=== PATIENT | male | born 1950 | race Caucasian/White ===

== ENCOUNTER 2020-09-15 11:56 | Day surgery (SDC) | payer MEDICARE, SELFPAY ==
[2020-09-11 12:58] VITALS: BMI 24.9
--- NOTE | 2020-09-14 11:31 | P.CONAN_ITS ---
HPI - Anesthesia Eval Consult details Narrative: 70yo M for Cloneal Nerve Cooled RFA [facility] Past Medical History Medical History Arthritis Back pain COPD (chronic obstructive pulmonary disease) Elevated cholesterol Hx of degenerative disc disease Surgical History Surgical History History of total hip replacement Hx of appendectomy Hx of decompressive lumbar laminectomy Social History Social History Smoking Status: Current every day smoker Meds Allergies Allergy/AdvReac Type Severity Reaction Status Date / Time No Known Allergies Allergy Verified 09/11/20 13:03 Home Medications Medication Instructions Recorded Confirmed Type acetaminophen [Tylenol Extra 1,000 mg PO QID PRN 09/11/20 09/11/20 History Strength] docusate sodium [Colace] 100 mg PO DAILY 09/11/20 09/11/20 History oxycodone 09/11/20 History Exam Exam Date and Time: September 14, 2020 1131 Height,Weight and Vital Signs: Height 6 ft Weight 83.461 kg Assessment and Plan Assessment Anesthesia Assessment: Chart Reviewed
--- NOTE | 2020-09-15 07:53 | MHC.SHP ---
Pre-Procedural Eval Section B Chief Complaint: Cluneal Neuropathy Details of Present Illness: low back pain Relevant Family History (Specify if Yes): No Relevant Social History: None Present Medications: see Short Stay Collaborative assessment Medical History: No relevant PMH History of Previous Operations: Relevant previous surgery/procedure and date(s) Allergies: Allergies Allergy/AdvReac Type Severity Reaction Status Date / Time No Known Allergies Allergy Verified 09/11/20 13:03 Review of Systems Sugical H&P ROS: Negative: Constitution, Cardiovascular, Respiratory, Neurological, Psychiatric, Hem-Onc, Allergic/Immunologic, Gastrointestinal, Genitourinary, Musculoskeletal, Integumentary, Endocrine and Eyes/Ears/Nose/Throat Exam Surgical H&P Exam: Not Evaluated: HEENT, Not Evaluated: Heart, Not Evaluated: Lungs, Not Evaluated: Extremities, Not Evaluated: Abdomen, Not Evaluated: Skin and Not Evaluated: Neurological Plan Diagnosis/Plan: Unchanged Patient has been examined and remains a candidate for the planned procedure
[2020-09-15 12:14] VITALS: BP 124/67; PULSE 74; RESP 18; TEMP 36.6; O2SAT 98
[2020-09-15] MEDS: Lactated Ringers 1,000 ML 100 ML IVCONT (12:30)
--- NOTE | 2020-09-15 13:40 | HO.ANESPROP2 ---
[facility] Past Medical History Medical History Arthritis Back pain Elevated cholesterol Hx of degenerative disc disease Surgical History Surgical History History of total hip replacement Hx of appendectomy Hx of decompressive lumbar laminectomy Social History Social History Smoking Status: Current every day smoker Advance Directives Information Provided: No Meds Allergies Allergy/AdvReac Type Severity Reaction Status Date / Time No Known Allergies Allergy Verified 09/11/20 13:03 Home Medications Medication Instructions Recorded Confirmed Type acetaminophen [Tylenol Extra 1,000 mg PO QID PRN 09/11/20 09/11/20 History Strength] docusate sodium [Colace] 100 mg PO DAILY 09/11/20 09/11/20 History oxycodone 09/11/20 History Exam Exam Date and Time: September 15, 2020 1340 Height,Weight and Vital Signs: Height 6 ft Weight 83.461 kg Last Vital Signs Temp 98 F 09/15/20 12:14 Pulse 74 09/15/20 12:14 Resp 18 09/15/20 12:14 BP 124/67 09/15/20 12:14 Pulse Ox 98 09/15/20 12:14 Airway Mallampati Class: II TM Dist: >3cm Neck ROM: Full Heart: RRR Lungs: CTA
--- NOTE | 2020-09-15 13:41 | HO.ANESPROP2 ---
[facility] Past Medical History Medical History Arthritis Back pain Elevated cholesterol Hx of degenerative disc disease Surgical History Surgical History History of total hip replacement Hx of appendectomy Hx of decompressive lumbar laminectomy Social History Social History Smoking Status: Current every day smoker Advance Directives Information Provided: No Meds Allergies Allergy/AdvReac Type Severity Reaction Status Date / Time No Known Allergies Allergy Verified 09/11/20 13:03 Home Medications Medication Instructions Recorded Confirmed Type acetaminophen [Tylenol Extra 1,000 mg PO QID PRN 09/11/20 09/11/20 History Strength] docusate sodium [Colace] 100 mg PO DAILY 09/11/20 09/11/20 History oxycodone 09/11/20 History Exam Exam Date and Time: September 15, 2020 1341 Height,Weight and Vital Signs: Height 6 ft Weight 83.461 kg Last Vital Signs Temp 98 F 09/15/20 12:14 Pulse 74 09/15/20 12:14 Resp 18 09/15/20 12:14 BP 124/67 09/15/20 12:14 Pulse Ox 98 09/15/20 12:14 Assessment and Plan Assessment Anesthesia Assessment: Anesthesia Plan Discussed, Smoking Cess. Discussed and Chart Reviewed Final Anesthetic Review NPO: No ASA Class: II Final Preanesthetic Review: No Changes in Pt Med Stat, Meds/Allgs Chart Reviewed, Consent Obtained/Reviewed and Anes Risks/Benef Reviewed Patient Risk: Low Procedure Risk: Low Anesthetic Plan Anesthetic Plan: MAC: Disposition: Standard PACU
--- NOTE | 2020-09-15 13:43 | FL_ITS ---
EXAMINATION: XR FLUOROSCOPY WITH IMAGES CLINICAL INFORMATION: Cluneal nerve RFA right COMPARISON: Fluoroscopic spot images 07/04/2020, outside lumbar MR 05/30/2016 ([facility]). TECHNIQUE: Fluoroscopy performed by Dr. Rebel Aguirre. Fluoroscopy time: 0.7 minutes DAP: 6.11 Gycm2 Images: 4 FINDINGS: There are 4 needle electrodes overlying the superior medial right iliac crest. FL/FL guidance in OR IMPRESSION: Fluoroscopy performed pain management procedure.
--- NOTE | 2020-09-15 15:07 | PM.OP ---
Brief Operative Note Date of procedure: 09/15/20 Pre-op diagnosis: cluneal mono neuropathy Post-op diagnosis: same Procedure: RFA of Cluneal nerves on the right. Implants: none Surgeon: Rebel Aguirre MD Anesthesia: MAC Estimated blood loss (mL): 0 IV fluids (mL): 500 Pathology: none sent Condition: stable Disposition: PACU
[2020-09-15 15:10] VITALS: BP 124/72; PULSE 64; RESP 16; TEMP 36.1; O2SAT 98
[2020-09-15 15:20] VITALS: BP 122/70; PULSE 62; RESP 16; O2SAT 96
--- NOTE | 2020-09-15 16:18 | P.OP_ITS ---
Operative Note Operative Note Narrative: Gwenis very pleasant 70 years old gentleman who came today into the operating room. After obtaining informed consent patient was brought to the operating room, she was positioned prone on operating table, [place] [employer] monitors were applied and patient was deeply sedated. Time-out was performed delineating correct site, side, the nature of the procedure, patient's allergy, preoperative antibiotic. All operating room staff was participating in OR time-out procedure. Patient's entire back was prepped with Chloraa prep and drape with utility drapes. Sterilely draped C-arm was brought over the operating field and sq picture of the right iliac crest was demonstrated on the screen. The patient's midline spinous process of L4-5 and S1 vertebra is was noted on the screen. Scoliosis of this area was noted on the screen. 8 cm away from the interspinous line another vertical line was drawn in vertical fashion until it crossed over the projection of the iliac crest. That was the 1st point of the injection. The lowest point of iliac crest was considered to be the last point of the injection. 18 gauge radiofrequency cannulas numerum 4 were sequentially driven to the projection of the iliac crest on the right in [place] fashion. Four treatment applications Each with four radiofrequency cannulas were required to cover entire length of the iliac crest. each time when needle was inserted through the skin and advanced to the patient's iliac crest bone the motor testing was performed and motor response was not observed. After that each needle was injected with mixture of lidocaine 1% and bupivacaine 0.5% 1-1 mixed with trace amount of Kenalog. Temperature application was 89?. The time of the application was 90 seconds. Upon completion of the each application the needles were rotated 180? and the same energy with the same time was applied to each needle position. Upon completion of all needle treatments the array of the RFA machine and needles were removed and sterile dressing was applied. Patient chapincito rated procedures well, he was transferred to PACU for the recovery in stable condition. He went home without immediate complications.
== END 2020-09-15 15:45 | disposition home or self-care (01) ==
PROVIDERS: PCP Internal Medicine; Visit Provider Anesthesiology
PROC: 3E0T3BZ Introduction of Anesthetic Agent into Peripheral Nerves and Plexi, Percutaneous Approach (ICD-10-PCS; CPT 64454; principal; 2020-09-15 14:30)
DX: G58.8 Other specified mononeuropathies (principal); M96.1 Postlaminectomy syndrome, not elsewhere classified; G89.4 Chronic pain syndrome; M54.5 Low back pain; M51.36 Other intervertebral disc degeneration, lumbar region; M17.0 Bilateral primary osteoarthritis of knee; F17.200 Nicotine dependence, unspecified, uncomplicated; Z79.899 Other long term (current) drug therapy; Z96.649 Presence of unspecified artificial hip joint
CPT/HCPCS: 64450 ×2; J2250; J3010; J3300

== ENCOUNTER → 2020-10-05 08:03 | Outpatient (BNVA) | payer MEDICARE, SELFPAY | PROVIDERS: PCP Internal Medicine; Visit Provider Anesthesiology | DX: M96.1 Postlaminectomy syndrome, not elsewhere classified (principal); M46.1 Sacroiliitis, not elsewhere classified; G58.8 Other specified mononeuropathies | CPT/HCPCS: 99212 ==

== ENCOUNTER 2020-10-17 06:14 | Outpatient (REF) | payer MEDICARE, SELFPAY ==
--- NOTE | 2020-10-17 08:21 | FL_ITS ---
EXAMINATION: XR FLUOROSCOPY WITH IMAGES CLINICAL INFORMATION: M46.1 - Sacroiliitis, not elsewhere classified COMPARISON: None. TECHNIQUE: Fluoroscopy performed by Blanca Betancourt NP. Fluoroscopy time: 0.1 minutes DAP: 1.41 Gycm2 Images: 1 FINDINGS: There is spinal needle overlying lower aspect right sacroiliac joint. There is contrast in the surrounding soft tissues and likely intra-articular. FL/FL guidance in treatment room IMPRESSION: Fluoroscopy for pain management procedure.
== END 2020-10-17 06:15 | disposition home or self-care (01) ==
LOC: HO.RADIR 06:14
PROVIDERS: Visit Provider Anesthesiology
DX: M46.1 Sacroiliitis, not elsewhere classified (principal)
CPT/HCPCS: 27096; J3300; Q9967

== ENCOUNTER → 2020-10-26 13:28 | Outpatient (BNVA) | payer MEDICARE, SELFPAY | PROVIDERS: PCP Internal Medicine; Referring Provider Internal Medicine; Visit Provider Anesthesiology | DX: M46.1 Sacroiliitis, not elsewhere classified (principal); M96.1 Postlaminectomy syndrome, not elsewhere classified; G58.8 Other specified mononeuropathies | CPT/HCPCS: 99212 ==

== ENCOUNTER 2020-11-21 05:23 | Outpatient (REF) | payer MEDICARE, SELFPAY ==
--- NOTE | 2020-11-21 07:30 | FL_ITS ---
EXAMINATION: XR FLUOROSCOPY WITH IMAGES CLINICAL INFORMATION: Postlaminectomy syndrome. COMPARISON: None. TECHNIQUE: Fluoroscopy performed by lBanca Betancourt NP. Fluoroscopy time: 0.9 minutes DAP: 6.32 Gycm2 Images: 1 FINDINGS: There is a single image of lateral sacral spine reveals contrast in the post sacral soft tissues and the linear contrast opacifying a extension through the sacrum into the presacral space. I'm not sure if there is a needle within extending to the presacral space with contrast FL/FL guidance in treatment room IMPRESSION: Fluoroscopy is provided to the referring physician for sacral injection.
== END 2020-11-21 05:24 | disposition home or self-care (01) ==
LOC: HO.RADIR 05:23
PROVIDERS: Visit Provider Anesthesiology
DX: G89.4 Chronic pain syndrome (principal); M96.1 Postlaminectomy syndrome, not elsewhere classified; G58.8 Other specified mononeuropathies; M46.1 Sacroiliitis, not elsewhere classified
CPT/HCPCS: 62323; J3300; Q9967

== ENCOUNTER → 2020-11-22 11:11 | Outpatient (BNVA) | payer MEDICARE, SELFPAY | PROVIDERS: PCP Internal Medicine; Visit Provider Anesthesiology | DX: G58.8 Other specified mononeuropathies (principal); M46.1 Sacroiliitis, not elsewhere classified; M96.1 Postlaminectomy syndrome, not elsewhere classified | CPT/HCPCS: Q3014 ==

== ENCOUNTER → 2021-01-03 08:07 | Outpatient (BNVA) | payer MEDICARE, SELFPAY | PROVIDERS: PCP Internal Medicine; Visit Provider Anesthesiology | DX: G58.8 Other specified mononeuropathies (principal); M46.1 Sacroiliitis, not elsewhere classified; M96.1 Postlaminectomy syndrome, not elsewhere classified | CPT/HCPCS: 99212 ==

== ENCOUNTER 2021-03-23 11:07 | Day surgery (SDC) | payer MEDICARE, SELFPAY ==
[2021-03-19 09:20] VITALS: BMI 25.0
--- NOTE | 2021-03-21 12:56 | P.CONAN_ITS ---
Documented by User: Tamela Meza 03/21/21 12:57 HPI - Anesthesia Eval Consult details Narrative: 70yo M for Lumbar Spinal Cord Simulation Trial [facility] Active Problems Active Problems: All Active Problems (Updated 11/22/20 @ 11:25 by Rebel Aguirre MD) Postlaminectomy syndrome (Acute) Sacroiliitis, not elsewhere classified (Acute) Other specified mononeuropathies (Acute) Past Medical History Medical History (Updated 11/22/20 @ 11:25 by Rebel Aguirre MD) Arthritis Back pain Elevated cholesterol Hx of degenerative disc disease Other specified mononeuropathies Postlaminectomy syndrome Sacroiliitis, not elsewhere classified Surgical History Surgical History (Updated 03/19/21 @ 09:20 by Kiersten Gates) History of total hip replacement Hx of appendectomy Hx of decompressive lumbar laminectomy Hx of prior ablation treatment Social History Social History (Updated 03/19/21 @ 09:21 by Kiersten Gates) Smoking Status: Current every day smoker Tobacco Type: Cigarette Advance Directives: No Advance Directives Information Provided: Yes Meds Allergies Allergy/AdvReac Type Severity Reaction Status Date / Time No Known Allergies Allergy Verified 01/03/21 08:14 Home Medications Medication Instructions Recorded Confirmed Last Taken Type acetaminophen [Tylenol Extra 1,000 mg PO QID PRN 09/11/20 09/11/20 Unknown History Strength] docusate sodium [Colace] 100 mg PO DAILY 09/11/20 09/11/20 Unknown History oxycodone 09/11/20 Unknown History Exam Exam Date and Time: March 21, 2021 1256 Height,Weight and Vital Signs: Height 6 ft Weight 83.688 kg Assessment and Plan Assessment Anesthesia Assessment: Chart Reviewed Documented by User: Mirlande Javier 03/23/21 11:32 [facility] Past Medical History Medical History (Updated 11/22/20 @ 11:25 by Rebel Aguirre MD) Arthritis Back pain Elevated cholesterol Hx of degenerative disc disease Other specified mononeuropathies Postlaminectomy syndrome Sacroiliitis, not elsewhere classified Surgical History Surgical History (Updated 03/19/21 @ 09:20 by Kiersten Gates) History of total hip replacement Hx of appendectomy Hx of decompressive lumbar laminectomy Hx of prior ablation treatment Social History Social History (Updated 03/19/21 @ 09:21 by Kiersten Gates) Smoking Status: Current every day smoker Tobacco Type: Cigarette Advance Directives: No Advance Directives Information Provided: Yes Meds Allergies Allergy/AdvReac Type Severity Reaction Status Date / Time No Known Allergies Allergy Verified 01/03/21 08:14 Home Medications Medication Instructions Recorded Confirmed Last Taken Type acetaminophen [Tylenol Extra 1,000 mg PO QID PRN 09/11/20 09/11/20 Unknown History Strength] docusate sodium [Colace] 100 mg PO DAILY 09/11/20 09/11/20 Unknown History oxycodone 09/11/20 Unknown History Exam Airway Mallampati Class: II TM Dist: >3cm Neck ROM: Full Partial: Upper Heart: RRR Lungs: CTA BL Assessment and Plan Assessment Anesthesia Assessment: Anesthesia Plan Discussed and Chart Reviewed Final Anesthetic Review NPO: Yes ASA Class: II Final Preanesthetic Review: No Changes in Pt Med Stat and Consent Obtained/Reviewed Patient Risk: Intermediate Procedure Risk: Intermediate Anesthetic Plan Anesthetic Plan: MAC: Disposition: Standard PACU
--- NOTE | ~2021-03-23 | FL_ITS ---
EXAMINATION: XR FLUOROSCOPY WITH IMAGES CLINICAL INFORMATION: Spinal stimulator trial COMPARISON: None. TECHNIQUE: Fluoroscopy performed by Dr. Blas Betancourt. Fluoroscopy time: 1.9 minutes DAP: 32.5 mGycm2 Images: 5 FINDINGS: There are posterior spinal epidural stimulators positioned posterior to T8 through T10 vertebra. Visualized bones and paravertebral soft tissues are normal. FL/FL guidance in OR IMPRESSION: Fluoroscopy provided to Dr. Rainer Rock for posterior epidural spinal stimulator placement.
[2021-03-23] MEDS: Lactated Ringers 1,000 ML 100 ML IVCONT (11:36)
[2021-03-23 11:37] VITALS: BP 132/66; PULSE 68; RESP 16; TEMP 36.4; O2SAT 94
--- NOTE | 2021-03-23 12:01 | MHC.SHP ---
Pre-Procedural Eval Section A Changes since office visit: Yes Patient answered all questions The History & Physical has been completed within 30 days and I have reviewed it.: No Section B Chief Complaint: postlaminectomy syndrome Details of Present Illness: As above Relevant Family History (Specify if Yes): No Relevant Social History: None Present Medications: see Short Stay Collaborative assessment Medical History: No relevant PMH History of Previous Operations: Relevant previous surgery/procedure and date(s) Allergies: Allergies Allergy/AdvReac Type Severity Reaction Status Date / Time No Known Allergies Allergy Verified 03/23/21 11:41 Review of Systems Sugical H&P ROS: Negative: Constitution, Cardiovascular, Respiratory, Neurological, Psychiatric, Hem-Onc, Allergic/Immunologic, Gastrointestinal, Genitourinary, Musculoskeletal, Integumentary, Endocrine and Eyes/Ears/Nose/Throat Exam Surgical H&P Exam: Normal: HEENT, Normal: Heart, Normal: Lungs, Normal: Extremities, Normal: Abdomen, Normal: Skin and Normal: Neurological Plan Diagnosis/Plan: Unchanged I have reviewed the history and physical and performed a pertinent physical examination on my patient. No changes have occurred unless specified.
[2021-03-23 13:10] VITALS: BP 119/72; PULSE 60; RESP 11; TEMP 36.2; O2SAT 94
--- NOTE | 2021-03-23 13:20 | PM.OP ---
Brief Operative Note Date of Service: 03/23/21 Pre-op diagnosis: Postlaminectomy syndrome Post-op diagnosis: same Procedure: Trial of SCS Implants: Nothing permanent Surgeon: Rebel Aguirre MD Anesthesia: MAC Was an Audio Video Mechanic used for this Procedure?: No Estimated blood loss (mL): 0 Pathology: none sent Condition: stable Disposition: PACU
--- NOTE | 2021-03-23 13:21 | W.PM.OPN ---
Operative Note Operative Note Date of Service: 03/23/21 Narrative: Mr. Natarajan is very pleasant 69 years old gentleman who came today into the operating room for trial of spinal cord stimulator for the treatment of pain related to degenerative disc disease and chronic pain syndrome. Preoperatively patient received 2 g cefazolin _approximately 30 minutes before the procedure. After obtaining informed consent patient was brought to the operating room, he was positioned prone on operating table, [place] [employer] monitors were applied and patient was deeply sedated. Time-out was performed delineating correct site, side, the nature of the procedure, patient's allergy, preoperative antibiotic. All operating room staff was participating in OR time-out procedure. Patient's entire back was prepped with ChloraPrep twice and draped with full body drape. Sterilely draped C-arm was brought over operating field and square picture of T12, L1, L2 vertebrae as were demonstrated on the screen. . Attention FIRST was concentrated on the RIGHT T12-L1 epidural interspace. The location of the projection of the right pedicle center of the L2 vertebra was found on the skin using C-arm. This location was injected with mixture of lidocaine 2% and Marcaine 0.5% 5 cc in approximate direction of needle advancement.. After that 10 cm 14 gauge curved introducer epidural needle was inserted through the fascia and advanced toward T12-L1 epidural interspace. The advancement of the needle was performed on anterior posterior and lateral views. Guitar wire and loss of resistance technique were used to locate epidural space. When guitar wire was spread in the epidural fashion, epidural lead was inserted through the skin and it was advanced in the posterior epidural space to the mid body of T8 vertebra slightly right to midline. After that locationf the projection of the LEFT pedicle center of the L2 vertebra was found -using C-arm. This location was injected with mixture of lidocaine 2% and Marcaine 0.5% 5 cc.. . 10 cm 14 gauge curved introducer epidural needle was inserted through the skin and advanced to T12-L1 epidural interspace. The advancement of the needle was performed on anterior posterior and lateral views. Guitar wire and loss of resistance technique were used to locate epidural space. When guitar wire was spread in the epidural fashion, epidural lead was inserted through the needle and advanced to the top of T8 practically in the center. At this moment patient was awaken.The leads were connected to the testing device and impedance was found appropriate. The stimulation device was used to stimulate spinal cord. Patient reported stimulation corresponding to his pain. After that the epidural needles were removed while care was taken to keep the epidural electrodes in place. Anchoring devices were dislodged on the each of the epidural leads to the level of the skin. The were engaged at the level of the skin. After that the were sutured to the skin using 0 silk sutures 3 sutures per each anchoring device. Bacitracin ointment was applied to the level of the skin. Sterile dressing was applied. At this moment patient was taken to the PACU where he recovered uneventfully.
[2021-03-23 13:25] VITALS: BP 117/64; PULSE 58; RESP 18; O2SAT 96
[2021-03-23 13:40] VITALS: BP 127/72; PULSE 56; RESP 18; O2SAT 97
== END 2021-03-23 14:15 | disposition home or self-care (01) ==
PROVIDERS: PCP Internal Medicine; Visit Provider Anesthesiology
PROC: (CPT 63650; principal; 2021-03-23 12:20)
DX: M96.1 Postlaminectomy syndrome, not elsewhere classified (principal); M46.1 Sacroiliitis, not elsewhere classified; G58.9 Mononeuropathy, unspecified
CPT/HCPCS: 63650 ×2; C1713; C1897; J0690; J3010

== ENCOUNTER → 2021-03-29 12:49 | Outpatient (BNVA) | payer MEDICARE, SELFPAY | PROVIDERS: PCP Internal Medicine; Visit Provider Anesthesiology | DX: M46.1 Sacroiliitis, not elsewhere classified (principal); G58.8 Other specified mononeuropathies; M96.1 Postlaminectomy syndrome, not elsewhere classified | CPT/HCPCS: 99212 ==

== ENCOUNTER → 2021-03-30 16:12 | Outpatient (BNVA) | payer MEDICARE, SELFPAY | PROVIDERS: PCP Internal Medicine; Visit Provider Anesthesiology | DX: G58.8 Other specified mononeuropathies (principal); M46.1 Sacroiliitis, not elsewhere classified; M96.1 Postlaminectomy syndrome, not elsewhere classified ==

== ENCOUNTER 2021-10-23 09:47 | Outpatient (REF) | payer MEDICARE, SELFPAY ==
[2021-10-23 10:58] LABS: MANUAL DIFF FLAG NO
[2021-10-23 11:00] LABS: Basophils Absolute Auto 0.1 X10*3/uL (0.0-0.2); Basophils Percent Auto 0.7 % (0-2); Eosinophils Absolute Auto 0.2 X10*3/uL (0.0-0.4); Eosinophils Percent Auto 2.6 % (0-4); Hematocrit 42.3 % (42.0-52.0); Hemoglobin 14.1 g/dl (14.0-18.0); Imm Gran Abs Auto 0.02 X10*3/uL (0.00-0.03); Imm Gran Pct Auto 0.2 % (0.0-0.4); Lymphocytes Percent Auto 23.1 % (20-40); Mean Corpuscular HGB Conc 33.3 g/dl (31.0-36.0); Mean Corpuscular Volume 95.9 fL (80.0-98.0); Mean Platelet Volume 12.1 fL (9.4-12.4); Monocytes Absolute Auto 0.7 X10*3/uL (0.1-1.2); Monocytes Percent Auto 8.3 % (2-11); Neutrophils Absolute Auto 5.5 x10*3/uL (2.0-8.3); Neutrophils Percent Auto 65.1 % (45-73); Platelet Count 243 X10*3/uL (160-400); Red Blood Count 4.41 X10*6/uL (4.60-5.80); Red Cell Distribution Width 12.7 % (11.0-16.0); White Blood Count 8.5 X10*3/uL (4.8-10.8)
[2021-10-23 11:27] LABS: Alanine Aminotransferase 24 U/L (0-40); Albumin Level 4.2 g/dL (3.5-5.0); Alkaline Phosphatase 38 U/L (39-117); Anion Gap 14 (12-20); Aspartate Amino Transferase 22 U/L (5-37); Bilirubin Total 0.4 mg/dL (0.0-1.0); Blood Urea Nitrogen 17 mg/dL (9-16); Calcium 10.1 mg/dL (8.4-10.2); Carbon Dioxide 21 mmol/L (22-29); Chloride 109 mmol/L (96-108); Cholesterol 223 mg/dL; Estimated Glomerular Filt Rate > 60; Glucose Fasting 98 mg/dL (60-99); HDL Cholesterol 47 mg/dL; LDL Cholesterol Calculated 151 mg/dl; Potassium 4.7 mmol/L (3.3-5.1); Sodium 139 mmol/L (135-145); Total Protein 6.6 g/dL (6.5-8.0); Triglycerides 128 mg/dL
[2021-10-23 11:49] LABS: Vitamin D 25-OH Total 32.4 ng/mL (>30)
[2021-10-23 11:52] LABS: Vitamin B12 541 pg/mL (200-900)
[2021-10-23 12:23] LABS: Prostate Specific Antigen 2.01 ng/mL (<0.05-4.0)
== END 2021-10-23 09:48 | disposition home or self-care (01) ==
LOC: HO.MANLDS 09:47
PROVIDERS: PCP Internal Medicine; Visit Provider Internal Medicine
DX: Z00.00 Encounter for general adult medical examination without abnormal findings (principal); Z12.5 Encounter for screening for malignant neoplasm of prostate
CPT/HCPCS: 36415; 80053; 80061; 82306; 82607; 84153; 85025

== ENCOUNTER 2022-11-13 08:02 | Outpatient (REF) | payer MEDICARE, SELFPAY ==
[2022-11-13 11:09] LABS: MANUAL DIFF FLAG NO
[2022-11-13 11:26] LABS: Basophils Absolute Auto 0.1 X10*3/uL (0.0-0.2); Eosinophils Absolute Auto 0.3 X10*3/uL (0.0-0.4); Eosinophils Percent Auto 3.6 % (0-4); Hematocrit 42.9 % (42.0-52.0); Hemoglobin 14.3 g/dl (14.0-18.0); Imm Gran Abs Auto 0.02 X10*3/uL (0.00-0.03); Imm Gran Pct Auto 0.3 % (0.0-0.4); Lymphocytes Absolute Auto 1.9 X10*3/uL (1.2-4.9); Mean Corpuscular HGB Conc 33.3 g/dl (31.0-36.0); Mean Corpuscular Hemoglobin 31.6 pg (27.0-33.0); Mean Corpuscular Volume 94.9 fL (80.0-98.0); Mean Platelet Volume 12.5 fL (9.4-12.4); Monocytes Absolute Auto 0.6 X10*3/uL (0.1-1.2); Monocytes Percent Auto 7.6 % (2-11); Neutrophils Absolute Auto 4.4 x10*3/uL (2.0-8.3); Neutrophils Percent Auto 61.5 % (45-73); Platelet Count 229 X10*3/uL (160-400); Red Blood Count 4.52 X10*6/uL (4.60-5.80); Red Cell Distribution Width 13.1 % (11.0-16.0); White Blood Count 7.2 X10*3/uL (4.8-10.8)
[2022-11-13 11:39] LABS: Estimated Average Glucose 100 mg/dL; Hemoglobin A1c % 5.1 %
[2022-11-13 12:28] LABS: Vitamin B12 625 pg/mL (200-900)
[2022-11-13 12:33] LABS: Alanine Aminotransferase 17 U/L (0-40); Alkaline Phosphatase 37 U/L (39-117); Anion Gap 14 (12-20); Aspartate Amino Transferase 20 U/L (5-37); Bilirubin Total 0.5 mg/dL (0.0-1.0); Blood Urea Nitrogen 11 mg/dL (9-16); Calcium 9.7 mg/dL (8.4-10.2); Carbon Dioxide 22 mmol/L (22-29); Chloride 107 mmol/L (96-108); Estimated Glomerular Filt Rate > 60; Glucose Random 104 mg/dL (60-115); Prostate Specific Antigen 1.42 ng/mL (<0.05-4.0); Sodium 139 mmol/L (135-145); Total Protein 6.3 g/dL (6.5-8.0); Vitamin D 25-OH Total 28.9 ng/mL (>30)
== END 2022-11-13 08:03 | disposition home or self-care (01) ==
LOC: HO.MANLDS 08:02
PROVIDERS: Visit Provider Internal Medicine
DX: Z00.01 Encounter for general adult medical examination with abnormal findings (principal); Z12.5 Encounter for screening for malignant neoplasm of prostate
CPT/HCPCS: 36415; 80053; 82306; 82607; 83036; 84153; 85025

== ENCOUNTER 2023-04-15 12:55 | Outpatient (REF) | payer MEDICARE, SELFPAY ==
[2023-04-15 14:47] LABS: Hematocrit 42.5 % (42.0-52.0); Mean Corpuscular HGB Conc 32.9 g/dl (31.0-36.0); Mean Corpuscular Hemoglobin 31.9 pg (27.0-33.0); Mean Corpuscular Volume 96.8 fL (80.0-98.0); Mean Platelet Volume 11.7 fL (9.4-12.4); Platelet Count 223 X10*3/uL (160-400); Red Blood Count 4.39 X10*6/uL (4.60-5.80); Red Cell Distribution Width 13.2 % (11.0-16.0); White Blood Count 7.9 X10*3/uL (4.8-10.8)
[2023-04-15 14:55] LABS: Partial Thromboplastin Time 32.5 SEC (26.0-36.4)
== END 2023-04-15 12:56 | disposition home or self-care (01) ==
LOC: HO.LAB 12:55
PROVIDERS: PCP Internal Medicine; Visit Provider Physician Assistant
DX: Z51.81 Encounter for therapeutic drug level monitoring (principal); M46.1 Sacroiliitis, not elsewhere classified; Z98.890 Other specified postprocedural states; Z79.899 Other long term (current) drug therapy
CPT/HCPCS: 36415; 85027; 85730; 99202

== ENCOUNTER → 2023-06-25 12:57 | Outpatient (BNV) | payer MEDICARE, SELFPAY | PROVIDERS: PCP Internal Medicine; Visit Provider Internal Medicine Cardiovascular Disease | DX: I49.3 Ventricular premature depolarization (principal); R94.31 Abnormal electrocardiogram [ECG] [EKG] | CPT/HCPCS: 93010 ==

== ENCOUNTER 2023-07-08 06:03 | Day surgery (SDC) | payer MEDICARE, SELFPAY ==
--- NOTE | 2023-06-25 | ECG_ITS ---
Test Reason : preop Blood Pressure : / mmHG Vent. Rate : 064 BPM Atrial Rate : 064 BPM P-R Int : 130 ms QRS Dur : 086 ms QT Int : 406 ms P-R-T Axes : 070 072 097 degrees QTc Int : 418 ms Sinus rhythm with sinus arrhythmia with Premature ventricular complexes or Fusion complexes Possible Left atrial enlargement Nonspecific ST and T wave abnormality Abnormal ECG No previous ECGs available Referred By: Tamela Meza Electronically Signed By:Andry Simons
[2023-06-25 12:06] VITALS: BP 121/68; PULSE 65; RESP 16; O2SAT 96; BMI 22.6
--- NOTE | 2023-06-25 12:23 | P.CONAN_ITS ---
Documented by User: Tamela Meza NP 06/30/23 10:53 HPI - Anesthesia Eval Consult details Narrative: 73yo M for Right Sacroiliac Joint Fusion Smoker:12 cigs daily x 60 years. Denies SOB, cough, need for inhalers. Stable at last PCP appoint 11/2022 No recent illness No CP/SOB with very minimal activity d/t back pain 06/2023 EKG reviewed by PCP. No change from previous. Ok to proceed with surgery PMFSH Active Problems Active Problems: All Active Problems (Updated 06/25/23 @ 11:58 by Kiersten Gates RN) Postlaminectomy syndrome (Acute) Sacroiliitis, not elsewhere classified (Acute) Other specified mononeuropathies (Acute) Past Medical History Medical History Arthritis Back pain COPD (chronic obstructive pulmonary disease) Elevated cholesterol Hx of degenerative disc disease Other specified mononeuropathies Postlaminectomy syndrome Sacroiliitis, not elsewhere classified Family History Family history of problems with anesthesia: No Surgical History Surgical History (Updated 06/24/23 @ 11:03 by Kiersten Gates RN) History of total hip replacement Hx of appendectomy Hx of decompressive lumbar laminectomy Hx of prior ablation treatment History of Problems with Anesthesia: No Social History Social History Are you a primary respiratory care technician to a significant other at home: No Do you presently have visiting nurse or other home services: No Patient Tobacco Use Status: Current everyday Tobacco user Tobacco use type: Cigarette Cigarette Packs Per Day: 0.5 Cigarettes Per Day: 12 Years Smoked: 60 Meds Allergies Allergy/AdvReac Type Severity Reaction Status Date / Time No Known Allergies Allergy Verified 04/15/23 13:15 Home Medications Medication Instructions Recorded Confirmed Last Taken Type acetaminophen 500 mg tablet 1,000 mg PO QID PRN Pain 09/11/20 06/25/23 Unknown History (Tylenol Extra Strength) docusate sodium 100 mg capsule 100 mg PO QAM 09/11/20 06/25/23 Unknown History (Colace) cholecalciferol (vitamin D3) 25 25 mcg PO DAILY 06/25/23 06/25/23 Unknown History mcg (1,000 unit) capsule (Vitamin D3) multivitamin 1 tab PO DAILY 06/25/23 06/25/23 Unknown History oxycodone 10 mg tablet 10 mg PO BID PRN Pain 06/25/23 06/25/23 Unknown History Exam Exam Date and Time: June 25, 2023 1223 Height,Weight and Vital Signs: Height 6 ft Weight 75.75 kg Last Vital Signs Pulse 65 06/25/23 12:06 Resp 16 06/25/23 12:06 BP 121/68 06/25/23 12:06 Pulse Ox 96 06/25/23 12:06 O2 Del Method Room Air 06/25/23 12:06 Pertinent Lab Results Pertinent Lab Results: Laboratory Tests 04/15/23 14:31 WBC 7.9 Hgb 14.0 Hct 42.5 Plt Count 223 Lab Results 06/25/23 Range/Units 12:53 Sodium 139 (135-145) mmol/L Potassium 4.4 (3.3-5.1) mmol/L Chloride 107 (96-108) mmol/L Carbon Dioxide 22 (22-29) mmol/L Anion Gap 14 (12-20) BUN 12 (9-16) mg/dL Creatinine 0.76 (0.5-1.4) mg/dL Estim Creat Clear Calc 91.3 Estimated GFR > 60 Random Glucose 96 (60-115) mg/dL Calcium 10.5 H D (8.4-10.2) mg/dL Narrative Narrative: EKG 06/2023 Vent. Rate : 064 BPM ? ? Atrial Rate : 064 BPM ?? P-R Int : 130 ms? QRS Dur : 086 ms ? ? QT Int : 406 ms ? ? ? P-R-T Axes : 070 072 097 degrees ?? QTc Int : 418 ms ? Sinus rhythm with sinus arrhythmia with Premature ventricular complexes or Fusion complexes Possible Left atrial enlargement Nonspecific ST and T wave abnormality Abnormal ECG No previous ECGs available Airway Mallampati Class: I TM Dist: >3cm Neck ROM: Full Partial: Upper and Lower Heart: RRR Lungs: CTAB Assessment and Plan Assessment Anesthesia Assessment: Anesthesia Plan Discussed, Smoking Cess. Discussed and PAT Visit Final Anesthetic Review Family History of Problems with Anesthesia: No History of Problems with Anesthesia: No Documented by User: Gregory Wray MD 07/08/23 15:17 REPLACED BY [facility] Past Medical History Medical History Arthritis Back pain COPD (chronic obstructive pulmonary disease) Elevated cholesterol Hx of degenerative disc disease Other specified mononeuropathies Postlaminectomy syndrome Sacroiliitis, not elsewhere classified Surgical History Surgical History (Updated 06/24/23 @ 11:03 by Kiersten Gates RN) History of total hip replacement Hx of appendectomy Hx of decompressive lumbar laminectomy Hx of prior ablation treatment Social History Social History Are you a primary respiratory care technician to a significant other at home: No Do you presently have visiting nurse or other home services: No Patient Tobacco Use Status: Current everyday Tobacco user Tobacco use type: Cigarette Cigarette Packs Per Day: 0.5 Cigarettes Per Day: 12 Years Smoked: 60 Meds Allergies Allergy/AdvReac Type Severity Reaction Status Date / Time No Known Allergies Allergy Verified 04/15/23 13:15 Home Medications Medication Instructions Recorded Confirmed Last Taken Type acetaminophen 500 mg tablet 1,000 mg PO QID PRN Pain 09/11/20 06/25/23 Unknown History (Tylenol Extra Strength) docusate sodium 100 mg capsule 100 mg PO QAM 09/11/20 06/25/23 Unknown History (Colace) cholecalciferol (vitamin D3) 25 25 mcg PO DAILY 06/25/23 06/25/23 Unknown History mcg (1,000 unit) capsule (Vitamin D3) multivitamin 1 tab PO DAILY 06/25/23 06/25/23 Unknown History oxycodone 10 mg tablet 10 mg PO BID PRN Pain 06/25/23 06/25/23 Unknown History Assessment and Plan Final Anesthetic Review NPO: Yes ASA Class: II Final Preanesthetic Review: No Changes in Pt Med Stat, Meds/Allgs Chart Reviewed, Consent Obtained/Reviewed and Anes Risks/Benef Reviewed Patient Risk: Low Procedure Risk: Low Anesthetic Plan Anesthetic Plan: GA Disposition: Standard PACU
[2023-06-25 14:53] LABS: Anion Gap 14 (12-20); Blood Urea Nitrogen 12 mg/dL (9-16); Calcium 10.5 mg/dL (8.4-10.2); Carbon Dioxide 22 mmol/L (22-29); Chloride 107 mmol/L (96-108); Creatinine Clr Calc Pharmacy 91.3; Estimated Glomerular Filt Rate > 60; Glucose Random 96 mg/dL (60-115); Potassium 4.4 mmol/L (3.3-5.1); Sodium 139 mmol/L (135-145)
--- NOTE | ~2023-07-08 | FL_ITS ---
EXAMINATION: XR FLUOROSCOPY WITH IMAGES CLINICAL INFORMATION: Sacroiliac joint fusion, right COMPARISON: None available. TECHNIQUE: Fluoroscopy Supervised By: Dr. Luis Enrique Awan. Fluoroscopy Time: 0.8 minutes. Cumulative Dose: 55.9 mGy. DAP: 14.3 Gycm2. Images: 1. FINDINGS: Single fluoroscopic image of the lower lumbar spine and sacrum. No surgical instruments seen. Atherosclerotic disease. FL/FL guidance in OR IMPRESSION: Single fluoroscopic image of the lower lumbar spine and sacrum.
[2023-07-08 06:28] VITALS: BP 118/71; PULSE 67; RESP 16; TEMP 36.2; O2SAT 95
[2023-07-08] MEDS: Lactated Ringers 1,000 ML 100 ML IVCONT (06:35)
[2023-07-08] MEDS: Gabapentin 300 MG CAPSULE PO (06:37)
[2023-07-08] MEDS: methocarbamoL 750 MG TABLET PO (06:37)
--- NOTE | 2023-07-08 07:09 | MHC.SHP ---
Pre-Procedural Eval Section A Date of Service: 07/08/23 Section B Chief Complaint: Sacroiliitis,Sacrococcygeal disorders, Allergies: Allergies Allergy/AdvReac Type Severity Reaction Status Date / Time No Known Allergies Allergy Verified 04/15/23 13:15 Review of Systems Sugical H&P ROS: Negative: Constitution, Cardiovascular, Respiratory, Neurological, Psychiatric, Hem-Onc, Allergic/Immunologic, Gastrointestinal, Genitourinary, Musculoskeletal, Integumentary, Endocrine and Eyes/Ears/Nose/Throat Exam Surgical H&P Exam: Not Evaluated: HEENT, Not Evaluated: Heart, Not Evaluated: Lungs, Not Evaluated: Extremities, Not Evaluated: Abdomen, Not Evaluated: Skin and Not Evaluated: Neurological Plan I have reviewed the history and physical and performed a pertinent physical examination on my patient. No changes have occurred unless specified. Procedures not changed will be doing a R sided SI joint fusion. Time Spent With Patient Time: Total time managing care of this patient today __10__ minutes.
[2023-07-08 08:55] VITALS: BP 121/73; PULSE 74; RESP 16; TEMP 35.8; O2SAT 96
[2023-07-08 09:00] VITALS: BP 125/69; PULSE 70; RESP 18; TEMP 36.2; O2SAT 98
[2023-07-08 09:05] VITALS: BP 123/68; PULSE 67; RESP 14; O2SAT 98
[2023-07-08 09:10] VITALS: BP 112/64; PULSE 67; RESP 16; O2SAT 97
[2023-07-08 09:25] VITALS: BP 121/67; PULSE 66; RESP 16; TEMP 36.1; O2SAT 95
--- NOTE | 2023-07-08 09:30 | PM.DS ---
DS: Providers Provider Date of Service: 07/08/23 Date of discharge: 07/08/23 Primary care physician: Rodrigo Rodriguez MD Admitting clinician: Luis Enrique Awan DS: Diagnosis Discharge Diagnosis (1) Sacroiliitis, not elsewhere classified: Status: Acute DS: Summary Time Spent with Patient Time attestation: Total time managing care of this patient today ____ minutes. Discharge coordination time: Less than 30 minutes Quality: Safe Use of Opioids Does Pt have an Active Cancer Diagnosis on the Problem List?: No Quality: Stroke Does the patient have a stroke diagnosis?: No Physical Exam Vital Signs: Vital Signs: Last Vital Signs Temp 97.2 F 07/08/23 09:00 Pulse 67 07/08/23 09:10 Resp 16 07/08/23 09:10 BP 112/64 07/08/23 09:10 Pulse Ox 97 07/08/23 09:10 O2 Del Method Room Air 07/08/23 09:10 O2 Flow Rate 2 07/08/23 09:05 BMI result Body Mass Index 22.6 Discharge Plan Discharge Patient Disposition: Home, Self-Care Referrals: Rodrigo Rodriguez MD [Primary Care Provider] - 1 Week Discharge Medications: Continued acetaminophen [Tylenol Extra Strength] 500 mg Tablet 1,000 mg PO QID PRN (Reason: Pain) docusate sodium [Colace] 100 mg Capsule 100 mg PO QAM oxycodone 10 mg tablet 10 mg PO BID PRN (Reason: Pain) multivitamin Tablet 1 tab PO DAILY cholecalciferol (vitamin D3) [Vitamin D3] 25 mcg (1,000 unit) Capsule 25 mcg PO DAILY Discharge Orders: Discharge Order (Routine); Ordered 07/08/23 Ordered By: Topher Lange Diet: Advance to usual diet Activity on Discharge: As tolerated
--- NOTE | 2023-07-08 12:58 | W.PM.OPN ---
Operative Note Operative Note Date of Service: 07/08/23 Narrative: Preop diagnosis: SI joint dysfunction, right-sided Postop diagnosis: Same Procedure: Attempt right as I joint fusion Surgeon: Luis Enrique Awan MD Assist: Anesthesia: General Estimated blood loss: 0 Intraoperative findings: The patient was put in a prone position on a Omid spine table. Two C arms or installed for fluoroscopy. Unfortunately, I was unable to visualize the anatomy required to safely perform the SI joint fusion. Therefore I decided to abort the procedure.
== END 2023-07-08 09:42 | disposition home or self-care (01) ==
PROVIDERS: Nurse Practitioner; PCP Internal Medicine; Visit Provider Neurological Surgery
DX: M46.1 Sacroiliitis, not elsewhere classified (principal); Z53.8 Procedure and treatment not carried out for other reasons; M53.3 Sacrococcygeal disorders, not elsewhere classified; M96.1 Postlaminectomy syndrome, not elsewhere classified; J44.9 Chronic obstructive pulmonary disease, unspecified; F17.210 Nicotine dependence, cigarettes, uncomplicated
CPT/HCPCS: 27279; 36415; 80048; 93005; J0131; J0690; J2405; J3010

== ENCOUNTER 2023-09-02 05:54 | Day surgery (SDC) | payer MEDICARE, SELFPAY ==
[2023-08-21 10:13] VITALS: BMI 23.1
--- NOTE | 2023-09-01 09:12 | P.CONAN_ITS ---
Documented by User: Tamela Meza NP 09/01/23 09:15 HPI - Anesthesia Eval Consult details Narrative: 73yo M for Right Sacroiliac Joint Fusion s/p same 06/2023 with GA-ETT 7.5 Smoker:12 cigs daily x 60 years. Denies SOB, cough, need for inhalers. 06/2023 EKG reviewed by PCP. No change from previous. Ok to proceed with surgery PMFSH Active Problems Active Problems: All Active Problems (Updated 06/25/23 @ 11:58 by Kiersten Gates RN) Postlaminectomy syndrome (Acute) Sacroiliitis, not elsewhere classified (Acute) Other specified mononeuropathies (Acute) Past Medical History Medical History COPD (chronic obstructive pulmonary disease) Postlaminectomy syndrome Sacroiliitis, not elsewhere classified Other specified mononeuropathies Hx of degenerative disc disease Elevated cholesterol Back pain Arthritis Family History Family history of problems with anesthesia: No Surgical History Surgical History (Updated 08/21/23 @ 09:38 by Kiersten Gates RN) Hx of right inguinal hernia repair Hx of prior ablation treatment Hx of appendectomy History of total hip replacement Hx of decompressive lumbar laminectomy History of Problems with Anesthesia: No Social History Social History Are you a primary skin care consultant to a significant other at home: No Do you presently have visiting nurse or other home services: No Patient Tobacco Use Status: Current everyday Tobacco user Tobacco use type: Cigarette Cigarette Packs Per Day: 0.5 Cigarettes Per Day: 12 Years Smoked: 60 Smoked in Last 30 Days: Yes Patient Interested in Nicotine Replacement: Yes Patient Given Instructions on How to Stop Smoking: Yes Date Education Initiated: 06/25/23 Use of substances other than those prescribed or required for medical reasons: No Have you been hit, kicked, punched, or otherwise hurt by someone within the past year? If so, by whom?: No Are you DNR?: No Advance Directives Information Provided: Yes (advised to bring copy DOS) Advance Directives on File: No Recently lost weight without trying: No Eating poorly because of decreased appetite: No Nutrition Risks: No Nutritional Risk Poor oral hygiene: No (upper & lower partials) Meds Allergies Allergy/AdvReac Type Severity Reaction Status Date / Time No Known Allergies Allergy Verified 04/15/23 13:15 Home Medications Medication Instructions Recorded Confirmed Last Taken Type acetaminophen 500 mg tablet 1,000 mg PO QID PRN Pain 09/11/20 08/21/23 09/01/23 History (Tylenol Extra Strength) docusate sodium 100 mg capsule 100 mg PO QAM 09/11/20 08/21/23 09/01/23 History (Colace) cholecalciferol (vitamin D3) 25 25 mcg PO DAILY 06/25/23 08/21/23 09/01/23 History mcg (1,000 unit) capsule (Vitamin D3) multivitamin 1 tab PO DAILY 06/25/23 08/21/23 09/01/23 History oxycodone 10 mg tablet 10 mg PO BID PRN Pain 06/25/23 08/21/23 09/02/23 05:30 History Exam Exam Date and Time: September 01, [id number] Height,Weight and Vital Signs: Height 6 ft Weight 77.111 kg Pertinent Lab Results Pertinent Lab Results: Laboratory Tests 04/15/23 06/25/23 06/25/23 14:31 12:53 12:53 WBC 7.9 Hgb 14.0 Hct 42.5 Plt Count 223 Sodium 139 Potassium 4.4 Chloride 107 Carbon Dioxide 22 BUN 12 Creatinine 0.76 Narrative Narrative: EKG 06/2023 Vent. Rate : 064 BPM ? ? Atrial Rate : 064 BPM ?? P-R Int : 130 ms? QRS Dur : 086 ms ? ? QT Int : 406 ms ? ? ? P-R-T Axes : 070 072 097 degrees ?? QTc Int : 418 ms ? Sinus rhythm with sinus arrhythmia with Premature ventricular complexes or Fusion complexes Possible Left atrial enlargement Nonspecific ST and T wave abnormality Abnormal ECG No previous ECGs available Assessment and Plan Assessment Anesthesia Assessment: Chart Reviewed Final Anesthetic Review Family History of Problems with Anesthesia: No History of Problems with Anesthesia: No Documented by User: Ham Oviedo MD 09/02/23 08:22 [facility] Past Medical History Medical History COPD (chronic obstructive pulmonary disease) Postlaminectomy syndrome Sacroiliitis, not elsewhere classified Other specified mononeuropathies Hx of degenerative disc disease Elevated cholesterol Back pain Arthritis Surgical History Surgical History (Updated 08/21/23 @ 09:38 by Kiersten Gates RN) Hx of right inguinal hernia repair Hx of prior ablation treatment Hx of appendectomy History of total hip replacement Hx of decompressive lumbar laminectomy Social History Social History Are you a primary skin care consultant to a significant other at home: No Do you presently have visiting nurse or other home services: No Patient Tobacco Use Status: Current everyday Tobacco user Tobacco use type: Cigarette Cigarette Packs Per Day: 0.5 Cigarettes Per Day: 12 Years Smoked: 60 Smoked in Last 30 Days: Yes Patient Interested in Nicotine Replacement: Yes Patient Given Instructions on How to Stop Smoking: Yes Date Education Initiated: 06/25/23 Use of substances other than those prescribed or required for medical reasons: No Have you been hit, kicked, punched, or otherwise hurt by someone within the past year? If so, by whom?: No Are you DNR?: No Advance Directives Information Provided: Yes (advised to bring copy DOS) Advance Directives on File: No Recently lost weight without trying: No Eating poorly because of decreased appetite: No Nutrition Risks: No Nutritional Risk Poor oral hygiene: No (upper & lower partials) Meds Allergies Allergy/AdvReac Type Severity Reaction Status Date / Time No Known Allergies Allergy Verified 04/15/23 13:15 Home Medications Medication Instructions Recorded Confirmed Last Taken Type acetaminophen 500 mg tablet 1,000 mg PO QID PRN Pain 09/11/20 08/21/23 09/01/23 History (Tylenol Extra Strength) docusate sodium 100 mg capsule 100 mg PO QAM 09/11/20 08/21/23 09/01/23 History (Colace) cholecalciferol (vitamin D3) 25 25 mcg PO DAILY 06/25/23 08/21/23 09/01/23 History mcg (1,000 unit) capsule (Vitamin D3) multivitamin 1 tab PO DAILY 06/25/23 08/21/23 09/01/23 History oxycodone 10 mg tablet 10 mg PO BID PRN Pain 06/25/23 08/21/23 09/02/23 05:30 History Exam Airway Mallampati Class: II TM Dist: <=3cm Neck ROM: Limited Heart: rrr Lungs: cta Assessment and Plan Assessment Anesthesia Assessment: Anesthesia Plan Discussed and Smoking Cess. Discussed Final Anesthetic Review ASA Class: III Final Preanesthetic Review: No Changes in Pt Med Stat, Meds/Allgs Chart Reviewed, Consent Obtained/Reviewed and Anes Risks/Benef Reviewed Patient Risk: High Procedure Risk: Low Anesthetic Plan Anesthetic Plan: GA and Agree w/ Assess. and Plan Disposition: Standard PACU
[2023-09-02] VITALS (16 sets, daily range): BP systolic 83–125; BP diastolic 38–74; PULSE 63–79; RESP 11–20; TEMP 36.1–36.6; O2SAT 93–99
--- NOTE | ~2023-09-02 | FL_ITS ---
EXAMINATION: XR FLUOROSCOPY WITH IMAGES CLINICAL INFORMATION: Sacrococcygeal joint fusion, right. COMPARISON: None available. TECHNIQUE: Fluoroscopy Supervised By: Dr. Luis Enrique Awan. Fluoroscopy Time: 0.5 minute. Cumulative Dose: 32.5 mGy. DAP: 7.28 Gycm2. Images: 2. FINDINGS: Images demonstrate trocar placement and hardware across the right sacroiliac joint FL/FL guidance in OR IMPRESSION: Fluoroscopy guidance for pain management procedure
[2023-09-02] MEDS: Lactated Ringers 1,000 ML 100 ML IVCONT (06:24)
[2023-09-02] MEDS: methocarbamoL 750 MG TABLET PO (06:25)
[2023-09-02] MEDS: Gabapentin 300 MG CAPSULE PO (06:25)
--- NOTE | 2023-09-02 06:34 | PC.NURSE ---
pt denies any rash or open wound
--- NOTE | 2023-09-02 07:10 | MHC.SHP ---
Pre-Procedural Eval Section A Date of Service: 09/02/23 The patient is an INPATIENT: No Changes since office visit: No Cold of Flu in the past 2 weeks, No New Medical Problems, No Changes in Medication and No Patient answered all questions The History & Physical has been completed within 30 days and I have reviewed it.: No Section B Chief Complaint: Sacrococcygeal disorders, not elsewhere classified Allergies: Allergies Allergy/AdvReac Type Severity Reaction Status Date / Time No Known Allergies Allergy Verified 04/15/23 13:15 Review of Systems Sugical H&P ROS: Negative: Constitution, Cardiovascular, Respiratory, Neurological, Psychiatric, Hem-Onc, Allergic/Immunologic, Gastrointestinal, Genitourinary, Musculoskeletal, Integumentary, Endocrine and Eyes/Ears/Nose/Throat Exam Surgical H&P Exam: Not Evaluated: HEENT, Not Evaluated: Heart, Not Evaluated: Lungs, Not Evaluated: Extremities, Not Evaluated: Abdomen, Not Evaluated: Skin and Not Evaluated: Neurological Plan Diagnosis/Plan: Unchanged I have reviewed the history and physical and performed a pertinent physical examination on my patient. No changes have occurred unless specified. right SI joint fusion Time Spent With Patient Time: Total time managing care of this patient today __10__ minutes.
--- NOTE | 2023-09-02 08:52 | PM.DS ---
DS: Providers Provider Date of Service: 09/02/23 Date of discharge: 09/02/23 Primary care physician: Rodrigo Rodriguez MD Admitting clinician: Luis Enrique Awan DS: Diagnosis Discharge Diagnosis (1) Sacroiliitis, not elsewhere classified: Status: Acute DS: Summary Time Spent with Patient Time attestation: Total time managing care of this patient today ____ minutes. Discharge coordination time: Less than 30 minutes Quality: Safe Use of Opioids Does Pt have an Active Cancer Diagnosis on the Problem List?: No Quality: Stroke Does the patient have a stroke diagnosis?: No Physical Exam Vital Signs: Vital Signs: Last Vital Signs Temp 98 F 09/02/23 06:06 Pulse 67 09/02/23 06:06 Resp 20 09/02/23 06:06 BP 107/74 09/02/23 06:06 Pulse Ox 98 09/02/23 06:06 O2 Del Method Room Air 09/02/23 06:06 BMI result Body Mass Index 23.1 DS: Data Data Completed and Pending Labs on day of discharge: Laboratory Results - last 24 hr 09/02/23 06:15 Blood Type O Positive Antibody Screen NEGATIVE Discharge Plan Discharge Patient Disposition: Home, Self-Care Referrals: Rodrigo Rodriguez MD [Primary Care Provider] - 1 Week Discharge Medications: New oxycodone 5 mg tablet 5 mg PO Q8H PRN (Reason: pain) Qty: 20 0RF Rx Instructions: Partial Fill upon patient request. Continued docusate sodium [Colace] 100 mg Capsule 100 mg PO QAM multivitamin Tablet 1 tab PO DAILY cholecalciferol (vitamin D3) [Vitamin D3] 25 mcg (1,000 unit) Capsule 25 mcg PO DAILY Discontinued oxycodone 10 mg tablet 10 mg PO BID PRN (Reason: Pain) No Action acetaminophen [Tylenol Extra Strength] 500 mg Tablet 1,000 mg PO QID PRN (Reason: Pain) Discharge Orders: Discharge Order (Routine); Ordered 09/02/23 Ordered By: Topher Lange Diet: Advance to usual diet Activity on Discharge: Walk with crutches Activity Restrictions/Additional Instructions: After your SI joint fusion surgery we ask you to observe the following restrictions/guidelines: Activity: It is normal to feel some discomfort as you increase your activity, but that will improve with time. We ask you avoid heavy lifting or acitivities that cause pain. As a general rule, 8lbs is a safe limit for lifting right after surgery. We ask you to stay off your right leg after surgery in order to help the SI joint fuse. Please use crutches or walker. You may return to driving when you are off narcotics (such as vicodin, oxycodone, dilaudid, etc), and you are back to normal functional capacity. If you have any concerns please check with office before driving. Return to work is specific to each patient and each surgery, so please speak with your doctor/PA at first follow up. Please bring paperwork such as FMLA at that time if you need it filled out. Follow up: Please call the office, , after surgery to arrange a 3 week follow up for wound check. Wound Care: Your wound was closed with glue, there are no sutures to remove. You may shower on post op day # 1. We ask that you do not let the water soak the wound. If it does get wet, just towel dry lightly. Please do not scrub your incision or place any type of chemical/ointment on the wound. No tub baths, pools or jacuzzis for one month. If you have any leaking or redness from your wound, or fevers, please call office Medications: We will give you a short supply of narcotics after surgery (usually one weeks worth). If you need more please call the office but do not use more than prescribed. You will need to give our office 48 hours notice if you need narcotics refilled and we do not fill narcotics on weekends or evenings. If you are on a narcotic, it is a good idea to take a stool softener such as colace or senna to avoid constipation If you take blood thinner such as aspirin, Plavix, Coumadin, Effient, Eliquis etc for conditions such as Afib, DVT, Pulmonary embolus, coronary disease, stents etc please speak with your surgeon about specific details as to when you can resume these medications. You can resume NSAIDs on post op day 1 (eg: Motrin, Naproxen, etc).
[2023-09-02] MEDS: fentaNYL citrate/PF 100 MCG/2 ML VIAL 25 MCG IVPUSH ×3 (09:20→09:30)
[2023-09-02] MEDS: oxyCODONE HCl Immed Release 5 MG TABLET PO (09:41)
[2023-09-02] MEDS: HYDROmorphone HCl 0.5 MG/0.5 ML SYRINGE 0.25 MG IVPUSH (10:05)
--- NOTE | 2023-09-02 10:13 | P.OP_ITS ---
Operative Note Operative Note Date of Service: 09/02/23 Narrative: Preoperative diagnosis: right sacroiliac joint dysfunction Postoperative diagnosis: Same Operative procedure: right sacroiliac joint fusion with 1 allograft implant Surgeon: Luis Enrique Awan MD, PhD Customer Care Representative: Topher Lange PA-C Anesthesia: General Description of procedure: The patient is suffering from right SI joint dysfunction refractory to nonoperative management. The patient has tried and failed all forms of conservative manage med except for an excellent short-term response to a sacroiliac joint injection. The sacroiliac joint was confirmed to be the pain generator after repeated pain blocks. The patient was offered surgical treatment with fixation and arthrodesis of the SI joint. The patient was brought to the operating room and endotracheally intubated. The patient was turned in a prone position on Omid spine table. Prepping and draping was done followed by a time-out. A C-arm was alternately positioned for lateral, oblique oblique and pelvic inlet and outlet projections througout the procedure. Skin markings were made for the anticipated position of the implant. A 2.5 cm longitudinal skin incision was made. A guide pin was inserted in an outlet oblique image for guidance follow-up insertion of dilator and working cannula. This was secured by placing an anchor pin into the ilium. Consideration was taken to cut channels utilizing a series of drills for decortication and internal fixation device placement. The implant was inserted such that it passed through the ilium, across the sacroiliac joint and into the sacrum, thus transfixing the sacroiliac joint. Proper positioning was confirmed on lateral fluoroscopy. The implant was packed with autologous bone collected from remain of the sacrum and ilium. Additional graft material was inserted into the c hannel void following the implant. The instruments were withdrawn. Upon completion, final images were obtained that showed a satisfactory position of the implant. Hemostasis was done. The incision was closed with an 0 Vicryl to fashion a 3-0 Vicryl subdermal layer after injecting Marcaine. Dermabond was used to approximate the surgeon. All sponge and needle counts were correct. Patient was extubated and transported in a stable condition to recovery room. Estimated blood loss: 10 mL Operative time: 50 minutes Complications: None Disposition: Discharge to home
== END 2023-09-02 13:14 | disposition home or self-care (01) ==
PROVIDERS: PCP Internal Medicine; Visit Provider Neurological Surgery
PROC: (CPT 0775T; principal; 2023-09-02 07:30)
DX: M53.3 Sacrococcygeal disorders, not elsewhere classified (principal); M46.1 Sacroiliitis, not elsewhere classified; M96.1 Postlaminectomy syndrome, not elsewhere classified; J44.9 Chronic obstructive pulmonary disease, unspecified; E78.00 Pure hypercholesterolemia, unspecified; Z98.890 Other specified postprocedural states; Z79.899 Other long term (current) drug therapy; F17.210 Nicotine dependence, cigarettes, uncomplicated
CPT/HCPCS: 0775T; 86850; 86900; 86901; C1713; J0131; J0690; J1100; J1170; J1885; J2371; J2405; J3010; L8699

== ENCOUNTER → 2023-09-02 05:54 | Outpatient (BNV) | payer MEDICARE, SELFPAY | PROVIDERS: PCP Internal Medicine; Visit Provider Physician Assistant | DX: M46.1 Sacroiliitis, not elsewhere classified (principal) | CPT/HCPCS: 27279; 99499 ==

== ENCOUNTER 2023-09-23 13:32 | Outpatient (AMB) | payer MEDICARE, SELFPAY ==
--- NOTE | 2023-09-23 14:02 | A.SPINEOV_ITS ---
Intake Intake Visit Reasons: 1st post op Intake Note: Mr. Glaeano is here today for his 1st. post-op visit. Faith Healer Required: No Allergies No Known Allergies Allergy (Verified 04/15/23 13:15) Assessment & Plan Assessment & Plan (1) S/P fusion of sacroiliac joint: Code(s): Z98.1 - Arthrodesis status Plan Procedure: right SI joint fusion Gianni comes in today for his 1st postoperative visit. He reports that he is very satisfied with surgery and feels much better than he did preoperatively. He states he has no radicular symptoms in only has some axial low back pain. He reports good relief of his low back pain with the use of [id number] pain medications alongside his prescribed pain medications. He reports that he has not attempted to bear weight on his right foot at all, but has been trying to remain active and complete some his ADLs. He was encouraged to begin trying to walk around his home with mild -moderate weight-bearing on the affected side with the assistance of his crutches. He was informed that if he feels stable and pain-free he may begin trying to ambulate without the assistance of his crutches the next few weeks. He had many questions about the SI joint implant that was used, and we reviewed his intra-operative x-rays during this visit. No neurological deficits. Patient is able to ambulate well with the assistance of crutches. Incision site is closed, well healing, with no signs of drainage. We will follow-up with the patient in 6 weeks for his 2nd postoperative visit. At that time we will get x-rays to review with the patient. Coding Level of Care Code Global (12046) Diagnoses S/P fusion of sacroiliac joint Z98.1
== END 2023-09-23 14:30 | disposition home or self-care (01) ==
PROVIDERS: PCP Internal Medicine; Visit Provider Physician Assistant
DX: Z98.1 Arthrodesis status (principal)
CPT/HCPCS: 99024

== ENCOUNTER 2023-09-23 13:32 | Outpatient (REF) | payer MEDICARE, SELFPAY | END 2023-09-23 13:33 | disposition home or self-care (01) | LOC: HO.HOSX 13:32 | PROVIDERS: PCP Internal Medicine; Visit Provider Physician Assistant | DX: Z13.89 Encounter for screening for other disorder (principal) ==

== ENCOUNTER 2023-10-31 13:24 | Outpatient (REF) | payer MEDICARE, SELFPAY ==
--- NOTE | ~2023-10-31 | XR_ITS ---
EXAMINATION: XR PELVIS CLINICAL INFORMATION: Arthrodesis status. COMPARISON: Intraoperative imaging August 2023. TECHNIQUE: AP view of the low pelvis. FINDINGS: The upper portion of the pelvis is outside of the [id number] of the exam. There is increased density overlying the right sacroiliac joint presumably related to prior surgery. Left total hip arthroplasty noted with the components in the usual position. No surrounding fracture or periprosthetic lucency. Mild arthrosis of the right hip with mild joint space narrowing and chondrocalcinosis. XR/XR pelvis 1-2V IMPRESSION: 1. Left total hip arthroplasty without complication by x-ray. 2. Density overlying the right sacroiliac joint presumably related to prior surgery.
== END 2023-10-31 13:25 | disposition home or self-care (01) ==
LOC: HO.HOSX 13:24
PROVIDERS: Visit Provider Physician Assistant
DX: M16.11 Unilateral primary osteoarthritis, right hip (principal)
CPT/HCPCS: 72170; 99212

== ENCOUNTER 2023-10-31 13:24 | Outpatient (AMB) | payer MEDICARE, SELFPAY ==
--- NOTE | 2023-10-31 13:40 | MHC.OFFVIS ---
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: No Allergies No Known Allergies Allergy (Verified 04/15/23 13:15) [facility] Medical History COPD (chronic obstructive pulmonary disease) Postlaminectomy syndrome Sacroiliitis, not elsewhere classified Other specified mononeuropathies Hx of degenerative disc disease Elevated cholesterol Back pain Arthritis Surgical History (Updated 09/23/23 @ 14:29 by REBEKAH Wilson) Hx of right inguinal hernia repair Hx of prior ablation treatment Hx of appendectomy History of total hip replacement Hx of decompressive lumbar laminectomy Social History Are you a primary health care marketing manager to a significant other at home: No Do you presently have visiting nurse or other home services: No Patient Tobacco Use Status: Current everyday Tobacco user Tobacco use type: Cigarette Cigarette Packs Per Day: 0.5 Cigarettes Per Day: 12 Years Smoked: 60 Assessment & Plan Assessment & Plan (1) S/P fusion of sacroiliac joint: Code(s): Z98.1 - Arthrodesis status Plan Procedure: right SI joint fusion Gianni comes in today for his 2nd postoperative visit. He states his axial low back pain has resolved. He no longer uses prescription strength pain medications. He is getting by with just [id number] medications. He has been attempting light weight-bearing on his right side, but has not been trying to ambulate on his own without crutches. We extensively discussed postoperative healing course, he was encouraged to continue to attempt free weight-bearing as long as he feels steady on his feet. His accompanied him and reported that she will attempt to get him to go for daily walks with her. He inquired about exercises to help strength in the fusion site, and I recommended that he attempt to return to regular household activity before trying any and additional exercises. We reviewed his x-rays today which show stable placement of fusion instrumentation on the right SI joint. No neurological deficits. Patient is able to ambulate well and weightbear with crutches. No disclosed pain with loading weight on his right leg. There is no need for further routine follow-up with Gianni. He may follow-up on as-needed basis. He may be discharged as a patient. Timothynat Awan MD,PhD [facility] [place] Coding Level of Care Code Global (44960) Diagnoses S/P fusion of sacroiliac joint Z98.1
== END 2023-10-31 14:28 | disposition home or self-care (01) ==
PROVIDERS: PCP Internal Medicine; Visit Provider Physician Assistant
DX: Z98.1 Arthrodesis status (principal)
CPT/HCPCS: 99024

== ENCOUNTER → 2023-10-31 13:24 | Outpatient (BNVA) | payer MEDICARE, SELFPAY | PROVIDERS: PCP Internal Medicine; Visit Provider Physician Assistant ==

== ENCOUNTER 2024-12-06 10:06 | Outpatient (AMB) | payer MEDICARE, SELFPAY ==
--- NOTE | 2024-12-06 10:06 | HO.SPINEOV ---
Vital Signs 12/06/24 10:13 Height 6 ft Weight 160 lb BMI 21.7 Intake Visit Reasons: evaluation for R back pain Intake Note: Mr. Galeano is here today for his 2nd post op. Cardiac Cath Lab Technologist Required: No Allergies No Known Allergies Allergy (Verified 12/06/24 10:13) Assessment & Plan Assessment & Plan (1) S/P fusion of sacroiliac joint: Code(s): Z98.1 - Arthrodesis status Category: Surgical Plan Procedure: right SI joint fusion HPI: Gianni comes in today for his 2nd postoperative visit. He reports that he has done overall very well since surgery and the initial pain he had that brought him into surgery near the right SI joint has resolved. He is now left with a severe pain near his right lateral hip. This pain is well localized to the right hip and does not shoot down his leg at all. He denies any numbness or burning sensation associated with this pain. He is using OTC medications and oxycodone to help mitigate the pain. He reports it is worst first thing in the morning and gets better as the day progresses. He identifies an inciting incident for his pain and states specifically when he is working on his lathe at home moving his hips back and forth while in a fixed position the pain worsens significantly. He has a PMHx significant for a previous left total hip arthroplasty. IMAGING: MRI lumbar spine from 2020 reviewed per patient request. The MRI completed at [facility] in 2020 shows diffuse spondylosis of the lumbar spine with varying levels of stenosis. There is a ventral disc herniation at T11-12 which does not appear to be causing unilateral stenosis of any kind. There is diffuse loss of disc height throughout the lumbar spine worse from L1-3. There is fairly significant right sided foraminal stenosis as a result of an extruded disc fragment at L2-3. This is also demonstrated at L3-4. EXAM: On examination the patient has a (-) bilateral straight leg raise and his strength remains 5/5 intact in his lower extremities. He ambulates without an antalgic gait. He has pain to direct palpation of the right greater trochanteric bursa. PLAN: I belive that Gianni is most likely suffering from R sided hip pathology that is causing his current problem. I would like to refer him to our colleagues in orthopedics to evaluate him. If it turns out he does not have any hip pathology I am more than happy to see him back in clinic to order a repeat lumbar MRI. Timothy Awan MD,PhD [facility] Coding Level of Care Code Global (85733) Diagnoses S/P fusion of sacroiliac joint Z98.1
[2024-12-06 10:13] VITALS: BMI 21.7
--- OUTSIDE RECORDS SUMMARY | 2024-12-06 10:26 | XMS_ITS | Data Portability ---
Author Organization [facility] Address [address] [place] [address] Assessment Encounter Date Assessment Date Assessment LastModified by Organization Details LastModified Time 10/03/2021 10/03/2021 [id number] [place] [id number] (CONCESSION SUPERVISOR) MDM MODERATE MUST MEET 2 OUT OF 3 ELEMENTS: PROBLEMS, DATA OR RISK ELEMENT 1: PROBLEMS ADDRESSED 1 OR MORE CHRONIC ILLNESS WITH EXACERBATION OR 2 OR MORE STABLE CHRONIC ILLNESSES OR 1 UNDIAGNOSED NEW PROBLEM OR 1 ACUTE ILLNESS W/SYMPTOMS OR 1 ACUTE COMPLICATED INJURY ELEMENT 2: DATA MUST MEET 1 OF 3 CATEGORIES CATEGORY 1: REVIEW OF PRIOR EXTERNAL NOTES, REVIEW OF RESULTS, ORDERING OF EACH TEST, ASSESSMENT REQUIRING INDEPENDENT HISTORIAN OR CATEGORY 2: INDEPENDENT INTERPRETATION OF TESTS BY ANOTHER PHYSICIAN OR SPECIALIST OR CATEGORY 3: DISCUSSION OF MGT OR TEST INTERPRETATION W/EXTERNAL PHYSICIAN OR SPECIALIST ELEMENT 3: RISK RISK OF COMPLICATIONS AND/OR MORBIDITY OR MORTALITY OF PATIENT MANAGEMENT PROVIDER MUST THOROUGHLY DOCUMENT EACH ELEMENT THAT IS COVERED Not available 10/03/2021 14:17:27 12/10/2022 12/10/2022 [id number] [place] [id number] (CONCESSION SUPERVISOR) : MDM LOW MUST MEET 2 OF 3 ELEMENTS: PROBLEMS, DATA OR RISK ELEMENT 1: PROBLEMS ADDRESSED (LOW): 2 OR MORE SELF-LIMITED OR MINOR PROBLEMS OR 1 STABLE CHRONIC ILLNESS OR 1 ACUTE UNCOMPLICATED ILLNESS OR INJURY ELEMENT 2: DATA TO BE REVISED AND ANALYZED (LOW) MUST MEET 1 OF 2 CATEGORIES: CATEGORY 1. REVIEW OF PRIOR EXTERNAL NOTES/RESULTS, ORDERING OF TEST(S) CATEGORY 2. ASSESSMENT REQUIRING INDEPENDENT HISTORIAN(S) INCLUDE WHO THE HISTORIAN IS AND RELATION TO PT AND WHY PT IS UNABLE TO GIVE COMPLETE HISTORY ELEMENT 3: RISK (LOW) RISK OF COMPLICATIONS AND/OR MORBIDITY OR MORTALITY OF PATIENT MANAGEMENT PROVIDER MUST THOROUGHLY DOCUMENT ALL OF THE ELEMENTS COVERED Not available 12/10/2022 14:05:34 Plan of Treatment Reminders Order Date Submit Date Provider Last Modified By Organization Details Last Modified Time Details Appointments ANNUAL EXAM 2024 11:30A M DR MEHTA Not available Not available Not available Lab CMP, serum or plasma 2020 [facility], [address] [place] [address], [address], 10/24/2021 15:02:07 CBC w/ auto diff 2020 [facility], [address] [place] [address], 75885, 10/23/2021 17:02:54 lipid panel, blood 2020 [facility], [address] [place] [address], [address], 10/24/2021 15:02:08 PSA, serum or plasma 2020 [facility], [address] [place] [address], 10[address], 10/23/2021 09:20:34 vitamin D, 25-hydrox y, total, serum 2020 [facility], [address] [place] [address], 22158, 10/24/2021 15:02:08 vitamin B12, serum 2020 [facility], [address] [place] [address], [address], 10/23/2021 09:20:34 CMP, serum or plasma 2021 022 [facility], [address] [place] [address], [address], 11/14/2022 11:14:12 CBC w/ auto diff 2021 [facility], [address] [place] [address], 73599, 11/14/2022 11:14:12 PSA, serum or plasma 2021 022 [facility], [address] [place] [address], 72625, 11/14/2022 11:14:12 vitamin D, 25-hydrox y, total, serum 2021 022 [facility], [address] [place] [address], 60421, 11/14/2022 11:14:12 HbA1c (hemoglob in A1c), blood 2021 [facility], [address] [place] [address], 42378, 11/14/2022 11:14:12 vitamin B12, serum 2021 022 [facility], [address] [place] [address], 10729, 11/14/2022 11:14:12 vitamin D, 25-hydrox y, total, serum 2023 024 [facility], [address] [place] [address], 52759, 12/19/2023 14:48:22 vitamin B12, serum 2023 024 [facility], [address] [place] [address], 02249, 12/31/2023 12:53:47 CMP, serum or plasma 2023 024 [facility], [address] [place] [address], 09502, 12/19/2023 14:48:22 CBC w/ auto diff 2023 024 [facility], [address] [place] [address], 04569, 12/31/2023 12:31:12 PSA, serum or plasma 2023 024 [facility], [address] [place] [address], [address], 12/31/2023 12:37:59 lipid panel, blood 2023 024 [facility], [address] [place] [address], 89394, 12/31/2023 12:38:35 Referral neurologi dannie surgeon referral 2020 021 walker Valverde MD, [address], [address], [address], 10/29/2021 16:38:08 orthopedi c spine surgeon referral - please eval pt for possibili ty of sacral injection s. he has been through numerous procedure s in the past all of which have not helped and i think they were looking in the wrong place. eri included some of the prior consults to give you an idea. thanks rodrigo stanley. 2022 023 walker Chavez MD, [address], [place], [address], 12/23/2022 08:41:48 Procedures None recorded. Surgeries None recorded. Imaging MRI, lumbar spine, w/o contrast 2020 021 [facility], [address] [facility], [place], [address], 10/29/2021 09:08:53 Medication Orders oxycodone 10 mg tablet 2020 021 [id number], [address], [place], [id number], 10/03/2021 14:26:46 oxycodone 10 mg tablet 2023 024 [facility] #[id number], [address] [place], [address], 12/19/2023 14:50:40 Patient TargetsNo targets recorded. Patient Instructions Encounter Date Encounter Id Patient Instructions Last Modified By Organization Details Last Modified Time 10/03/2021 [id number] pulse oximetry* Not available 10/03/2021 14:26:36 10/23/2021 [id number] needs flu shot Not available 10/23/2021 09:21:20 History: Type of tobacco: {{Cigarettes* Pip e Cigars Smokeles s}} How many years? {{5 10 15 20 or more*}} Packs per day: {{1* 2 3}} Approx date of last quit attempt: {{1 2 3 4 5 Month s ago years ago}} Medication used in previous quit attempt: {{Patch Inhaler G um Lozenge Buprop ion Varenicline N one}} Readiness to Quit: {{Not interested in quitting* Thinkin g about quitting at some point Ready to quit}} Assessment and Plan: Educational materials provided: {{Prescription quit smoking}} {{Patient specific education}} Counseled for second hand smoke Counseling notes: {{}} Counseling: Counseled for: {{3 to 10mins* 10+mins}} Not available 10/23/2021 09:20:19 12/10/2022 [id number] pulse oximetry* Not available 12/10/2022 14:02:43 Reason for Referral Neurological Surgeon Referra l for Degeneration of lumbar intervertebral disc Referring Physician: Rodrigo Mehta, Internal Medicine, Encounter Date: 10/03/2021 Orthopedic Spine Surgeon Ref erral for Degeneration of lumbar intervertebral disc please eval pt for possibility of sacral injections. he has been through numerous procedures in the past all of which have not helped and i think they were looking in the wrong place. eri included some of the prior consults to give you an idea. thanks rodrigo stanley. Referring Physician: Rodrigo Mehta, Internal Medicine, Encounter Date: 12/10/2022 Results Created Date Observation Date Name Description Value Unit Range Abnormal Flag Note LastModifiedBy Organization Detail LastModifiedTime 10/03/2010/03/2021 pulse oxime try* Result 98 Not Available [facility] [address] [facility] [address], [place], [address], 10/03/2021 13:48:07 12/10/19 23 12/10/2022 pulse oxime try* Result 98 Not Available [facility] [address] [facility] [address], [place], [address], 12/09/2022 16:21:30 10/29/20 21 10/29/2021 MRI, lumba r spine , w/o contr ast No observ ation record ed. [facility] [address] [facility], [place], [address], 10/29/2021 16:10:45 09/08/20 23 09/02/2023 RF, bryn nce No observ ation record ed. [facility] (Medical Records) [address] [place], [address], 12/19/2023 14:41:07 Result Notes None recorded. Problems Name Problem SNOMED Code Status Onset Date Resolution Date Notes Provider Name and Address Organization Details Recorded Time Tobacco dependen ce syndrome 23729152 Active 2017 Not Available [facility] 0 12:59:03 Hyperlip idemia 41668391 Active 2017 Not Available [facility] 0 12:59:03 Osteoart hritis of knee 796969061 Active 2017 bilateral Not Available [facility] 0 12:59:03 Polyp of colon 90904702 Active 2017 Not Available [facility] 0 12:59:03 Acute gangreno us appendic itis 70634211 Active 2017 perforati on sepsis Not Available [facility] 0 12:59:03 Chronic obstruct eri pulmonar y disease 64177205 Active 2017 Not Available [facility] 0 12:59:03 Degenera tion of lumbar interver tebral disc 07881574 Active 2017 Not Available [facility] 0 12:59:03 Nummular eczema 25666401 Active 2021 Rodrigo Mehta, DO [address] [place] [address], [address], [facility] 2 11:02:58 Right inguinal hernia 205398836 Active 2022 Rodrigo Mehta, DO [address] [place] [address], [address], [facility] 3 23:22:10 Vitamin D deficien cy 39681301 Active 2023 Rodrigo Mehta, DO [address] [place] [address], [phone], [facility] 4 14:46:16 Problem Notes None recorded. Procedures Surgical History None recorded. Imaging Results Imaging Date Name Status LastModified by Organiz ation Details LastModified Time 10/29/2021 MRI, lumbar spine, w/o contrast completed [facility] [address] [facility], [place], [address], 10/29/2021 16:10:45 09/02/2023 RF, guidance completed [facility] (Medical Records) [address] [place], [address], 12/19/2023 14:41:07 Procedure Notes None recorded. Medical Equipment None Reported. Allergies No known drug allergies Medications Name Sig Start Date Stop Date Status Note LastModified by Organization Details LastModified Time carisoprodo l 350 mg tablet Take 1 tablet twice a day by oral route as needed. 11/02 completed Not Available Not Available Not Available prednisone 10 mg tablet TAKE 3 TABLETS BY MOUTH EVERY DAY FOR 3 DAYS active Not Available Not Available No t Available azithromyci n 250 mg tablet TAKE 2 TABLETS BY MOUTH TODAY, THEN TAKE 1 TABLET DAILY FOR 4 DAYS DIRECTED active Not Available Not Available No t Available meloxicam 15 mg tablet Take 1 tablet every day by oral route for 30 days. 06/29 completed Not Available Not Available Not Available clobetasol 0.05 % topical cream APPLY THIN LAYER TOPICALLY TO THE AFFECTED AREA TWICE DAILY active Not Available Not Available No t Available triamcinolo ne acetonide 0.1 % topical cream APPLY A THIN LAYER TO THE AFFECTED AREA(S) BY TOPICAL ROUTE 2 TIMES PER DAY 11/02 completed Not Available Not Available Not Available amoxicillin 500 mg tablet 06/29 completed Not Available Not Available Not Available Tylenol 500 mg tablet Take 2 tablets every 6 hours by oral route. active Not Available Not Available No t Available cephalexin 500 mg capsule 11/05 completed Not Available Not Available Not Available oseltamivir 75 mg capsule TAKE 1 CAPSULE BY MOUTH TWICE A DAY active Not Available Not Available No t Available Guaifenesin AC 10 mg-100 mg/5 mL oral liquid 06/29 completed Not Available Not Available Not Available Tylenol 325 mg tablet Take 2 tablets every 6 hours by oral route. 11/05 completed Not Available Not Available Not Available methylpredn isolone 4 mg tablets in a dose pack as directed 11/02 completed Not Available Not Available Not Available albuterol sulfate HFA 90 mcg/actuati on aerosol inhaler 2 PUFF BY INHALATIO N EVERY FOUR HOURS NEEDED SHORTNESS OF BREATH active Not Available Not Available No t Available oxycodone 5 mg tablet 12/31 completed Not Available Not Available Not Available ketorolac 0.4 % eye drops 07/03 completed Not Available Not Available Not Available Boostrix Tdap 2.5 Lf unit-8 mcg-5 Lf/0.5 mL intramuscul ar syringe 01/29 completed Not Available Not Available Not Available oxycodone 10 mg tablet TAKE 1 TABLET BY MOUTH TWICE DAILY NEEDED active Not Available Not Available No t Available Shingrix (PF) 50 mcg/0.5 mL intramuscul ar suspension, kit 11/02 completed Not Available Not Available Not Available Vitals Date Recorded Body height Body mass index (BMI) Body weight Heart rate Oxygen saturation Oxygen saturation in Arterial blood by Pulse oximetry Systolic blood pressure Diastolic blood pressure Provider Name and Address Organization Details Last Updated DateTime 1 180.98 cm 25.9 kg/m2 90748.7 7 g 79 /min 98 % 98 % 122 mm[Hg] 70 mm[Hg] Natalie Olson [facility] 1 13:50:15 Date Recorded Body height Body mass index (BMI) Body weight Heart rate Oxygen saturation Oxygen saturation in Arterial blood by Pulse oximetry Systolic blood pressure Diastolic blood pressure Provider Name and Address Organization Details Last Updated DateTime 1 180.98 cm 26 kg/m2 79388.6 5 g 80 /min 96 % 96 % 132 mm[Hg] 70 mm[Hg] Natalie Olson [facility] 1 09:00:09 Date Recorded Body height Body mass index (BMI) Body weight Oxygen saturation Oxygen saturation in Arterial blood by Pulse oximetry Heart rate Systolic blood pressure Diastolic blood pressure Provider Name and Address Organization Details Last Updated DateTime 2 180.98 cm 24.4 kg/m2 16875.2 6 g 97 % 97 % 83 /min 110 mm[Hg] 62 mm[Hg] Maci Kimbrough [facility] 2 09:29:21 Date Recorded Body height Body mass index (BMI) Body weight Heart rate Oxygen saturation Oxygen saturation in Arterial blood by Pulse oximetry Systolic blood pressure Diastolic blood pressure Provider Name and Address Organization Details Last Updated DateTime 3 180.98 cm 24.2 kg/m2 40019.6 6 g 70 /min 98 % 98 % 132 mm[Hg] 78 mm[Hg] Rodrigo Mehta, DO [address] [place], [address], [facility] 3 13:44:14 Date Recorded Body height Body mass index (BMI) Body weight Heart rate Oxygen saturation Oxygen saturation in Arterial blood by Pulse oximetry Systolic blood pressure Diastolic blood pressure Provider Name and Address Organization Details Last Updated DateTime 4 180.34 cm 24.4 kg/m2 58015.6 6 g 88 /min 98 % 98 % 118 mm[Hg] 70 mm[Hg] Analy Nevarez [facility] 4 14:22:21 Social History Question Answer Notes LastModified by Organizat ion Details LastModified Time Tobacco Smoking Status Current Every Day Smoker Not Available [facility] 09/19/2020 03:36:24 What Was The Date Of Your Most Recent Tobacco Screening? 12/19/2023 [email or web address] Information not available 12/19/2023 How Much Tobacco Do You Smoke? 0.5 PPD [id number] Information not available 09/19/2020 Do You Or Have You Ever Used Any Other Forms Of Tobacco Or Nicotine? No Information not available 12/10/2022 Sex: Unknown Functional Status None recorded. Mental Status None recorded. Family History Nothing Reported. Medical History No medical history recorded. Immunizations Vaccine Type Date Status Note Provider Nam e and Address Organization Details Recorded Time zoster recombinant 8 completed Not Available [facility] 03/21/2023 20:33:03 zoster recombinant 8 completed Not Available [facility] 03/21/2023 20:33:03 COVID-19, mRNA, LNP-S, PF, 30 mcg/0.3 mL dose 1 completed Not Available [facility] 03/21/2023 20:33:03 COVID-19, mRNA, LNP-S, PF, 30 mcg/0.3 mL dose 1 completed Not Available [facility] 03/21/2023 20:33:03 COVID-19, mRNA, LNP-S, PF, 30 mcg/0.3 mL dose 1 completed Not Available [facility] 03/21/2023 20:33:03 Tdap 0 completed Not Available [facility] 03/21/2023 20:33:03 pneumococcal polysaccharide PPV23 0 completed Not Available [facility] 03/21/2023 20:33:03 Influenza, split virus, quadrivalent, preservative 0 completed Not Available [facility] 03/21/2023 20:33:03 Pneumococcal conjugate PCV 13 8 completed Not Available [facility] 03/21/2023 20:33:03 Tdap 8 completed Not Available [facility] 03/21/2023 20:33:03 Past Encounters Encounter ID Performer Location Encounter Start Date Encounter Closed Date Diagnosis/Indication Diagnosis SNOMED-CT Code Diagnosis ICD10 Code Diagnosis Note [id number] Rodrigo Mehta DO [facility] [address] [place] [address],[place] [address] 06/29/2018 13:32:19 06/29/2018 15:20:14 Hyperlipidemia 32752540 E78.00 Tobacco de pendence syndrome 30753425 F17.200 refuses to quit Chronic ob structive pulmonary disease 07538154 J44.9 relates he does not feel sob Degenerati on of lumbar intervertebral disc 04519478 M51.36 marked progressio n of the lumbar back pain on the right pt is notably feeling worse and has now completly disrupted his quality of life pain is becoming unbearable and is having a hard time coping. even med cannabis is no longer helping he nees an MRI to check for progressio n and if theres somethin to fix as in the past dr vitale did not have any options will provide oxycodone in the short term Eczema 60689325 L30.9 [id number] Rodrigo Mehta, [facility] [address] [place] [address] [place] [address] 07/17/2018 13:26:02 07/17/2018 14:21:07 Degeneration of lumbar intervertebral disc 60011831 M51.36 marked progressio n of the lumbar back pain on the right pt is notably feeling worse and has now completly disrupted his quality of life pain is becoming unbearable and is having a hard time coping. even med cannabis is no longer helping he needs further eval by a specialisr as his repeat MRI does not reveal a specific right sided lesion that is causing his discomfort will need another opinion as to where to approach this will provide oxycodone in the short term [id number] Marge Chung NP, S [facility] [address] [place] [address] [place] [address] 09/07/2018 14:11:58 09/07/2018 15:18:54 Cervico-occipital neuralgia 31606788 M54.81 Chronic low back pain 27 0102149 M54.5 [id number] Marge Chung NP, S [facility] [address] [place], [place] [address]Chao ite D [facility] [place] [address] 11/02/2018 14:44:15 11/02/2018 15:55:41 On examination - rash present 235425544 R21 Moisturize after shower and before bed daily, prn benadryl, call if worsens or no relief Neck pain 74084851 M54.2 Chronic low back pain 27 4602594 M54.5 [id number] Rodrigo Mehta [facility] [address] [place] [address] 08/23/2019 11:05:42 08/23/2019 12:25:47 Pre-surgery evaluation 516756354 Z01.818 this patient is cleared for the proposed catarct procedure. According to the acc 2017 risk strat. (revised) he is considered an low risk. Pt knows to take his usual medication s on the morning of surgery. [id number] Rodrigo Mehta [facility] [address] [address] 07/03/2020 11:43:51 07/03/2020 12:17:08 Renewal of prescription 087624515 Z76.0 oxycodone Degenerati on of lumbar intervertebral disc 95347425 M51.36 marked progressio n of the lumbar back pain on the right pt is notably feeling worse and has now completely disrupted his quality of life pain is becoming unbearable and is having a hard time coping. even med cannabis is no longer helps he will be receiving a jhon inj tomorrow at pain clinic will provide oxycodone in the short term Chronic ob structive pulmonary disease 50808285 J44.9 relates he does not feel sob still smoking Lesion of skin of left ear 3163201846 7627074 H93.8X2 [id number] Rodrigo Mehta [facility] [address] [place] [address] 12/13/2020 08:44:58 12/13/2020 15:12:53 Degeneration of lumbar intervertebral disc 63583276 M51.36 marked progressio n of the lumbar back pain on the right pt is notably feeling worse and has now completely disrupted his quality of life pain is becoming unbearable and is having a hard time coping. even med cannabis is no longer helps he underwent injections at pain management including ablation but did not gain relief he is now undergoing workup for intratheca l pain management Hyperlipidemia 22052557 E78.00 he will need to have more blood work Osteoarthr itis of knee 814242407 M17.9 he will need to have this monitored and send to ortho if need Tobacco de pendence syndrome 35960660 F17.200 refuses to quit [id number] Rodrigo Mehta [facility] [address] [place] [address] [place] [address] 10/03/2021 13:45:28 10/03/2021 16:13:10 Degeneration of lumbar intervertebral disc 30096635 M51.36 marked progressio n of the lumbar back pain on the right pt is notably feeling worse and has now completely disrupted his quality of life pain is becoming unbearable and is having a hard time coping. even med cannabis is no longer helps he underwent injections at pain management including ablation but did not gain relief he has failed the intratheca l injections and spinal nerve stimulator given the [facility] i feel very strongly that we need to repaeat an MRI and find out the progressio n of his spinal disease and following that we will have him referred to dr Giovanni VALVERDE Chronic ob structive pulmonary disease 46012510 J44.9 relates he does not feel sob still smoking Hyperlipidemia 61017932 E78.00 he will need to have more blood work [id number] Rodrigo Mehta [facility] [address] [place] [address] [place] [address] 10/23/2021 08:55:14 10/23/2021 13:48:04 Active or passive immunization 701960555 Z23 utd Adult heal th examination 290679533 Z00.00 [id number] Rodrigo Mehta [facility] [address] [place] [address] [place] [address] 11/05/2022 09:17:08 11/05/2022 10:38:47 Active or passive immunization 376581843 Z23 utd Adult heal th examination 580624338 Z00.01 overall is stable back pain is still the over riding issue with his healthit is interferin g with his adl's Chronic ob structive pulmonary disease 78913262 J44.9 relates he does not feel sob still smoking [id number] [facility] [address] [place] [address] [place] [address] 12/10/2022 13:39:33 12/11/2022 08:48:25 Chronic obstructive pulmonary disease 54096372 J44.9 relates he does not feel sob still smoking Degenerati on of lumbar intervertebral disc 91204398 M51.36 [id number] Rodrigo Mehta, [facility] [address] [facility],[place] [address] 12/19/2023 14:17:20 12/22/2023 14:21:23 Adult health examination 850915629 Z00.01 overall is stable back pain is still the over riding issue with his health despite surgery but he agrees the severe pain is gone now for most parthe wished to quit tobacco long discussion he will try Zyn Vitamin D deficiency 347 84258 E55.9 Degenerati on of lumbar intervertebral disc 73331851 M51.36 Health Concerns Section Related Observation LastModified by Organization Detai ls LastModified Time None Recorded Concern Status LastModified by Organization Details LastModified Time None Recorded Advance Directives Directive None Recorded Payers Encounter Date Sequence Insurance Name Policy Number Policy Razo Covered Member ID Razo Member ID Guarantor Name 10/03/2021 2 [facility] SUPP1 Gianni A Camp [id number] 1 Gianni Camp 10/03/2021 1 [place] [employer] Gianni A Camp [id number] Gianni Camp 10/23/2021 2 [facility] SUPP1 Gianni A Camp [id number] 1 Gianni Camp 10/23/2021 1 [place] [employer] Gianni A Camp [id number] 3 Gianni Camp 11/05/2022 2 [facility] SUPP1 Gianni A Camp [id number] 1 Gianni Camp 11/05/2022 1 [place] [employer] Gianni A Camp [id number] 3 Gianni Camp 12/10/2022 2 [facility] SUPP1 Gianni A Camp [id number] 1 Gianni Camp 12/10/2022 1 [place] [employer] Gianni A Camp [id number] 3 Gianni Camp 12/19/2023 2 [facility] SUPP1 Gianni Galeano [id number] 1 Gianni Galeano 12/19/2023 1 [place] [facility] Gianni Lees Camp [id number] 3 Gianni Elverta Notes Date Note Type Note Provider Name a nd Address Organization Details Recorded Time 1 text/html here for his severe back painhas been seeing pain management in [place] and they are at an endpoint his last treatment using a spine stimulator helped or the epidurals etchis pain has been severely limiting your quality of lifehis back pain is so bad that it prevents him from travel or sitting in a restaurant or any of the other myriad enjoyment activities of his jail. Rodrigo Mehta DO [address] [place] [address], [phone], [facility] 10/03/2021 14:26:55 1 text/html Annual WellnessReported bypatient.Diet and Nutrition:healthy diet Fracture Risk:no history of fractures; no recent explained fracture; no sudden unexplained fractures; no previous musculoskeletal injuries Physical Activity:exercises on a regular basis; recent increase in physical activity; good physical condition Additional Lifestyle Factors:no tobacco use; no alcohol intake; stopped drinking alcohol Depression Risk:never feels sad, empty, or tearful; no loss of interest in activities; no significant changes in weight; no sleep disturbances or insomnia; no agitation; no loss of energy; no feelings of worthlessness or guilt; no thoughts of suicide; no history of depression; no history of mood disorders Hearing:no loss of hearing Vision:no vision problems here for annual doing ok overallstill in pain with his back and takes the oxycodone when he cant stand (it) any longergoes for repeat MRI this month Rodrigo eMhta DO [address] [place] [address], [phone], [facility] 10/23/2021 09:26:45 2 text/html Annual WellnessReported bypatient.Diet and Nutrition:healthy diet Fracture Risk:no history of fractures; no recent explained fracture; no sudden unexplained fractures; no previous musculoskeletal injuries Physical Activity:exercises on a regular basis; recent increase in physical activity; good physical condition Additional Lifestyle Factors:no tobacco use; no alcohol intake; stopped drinking alcohol Depression Risk:never feels sad, empty, or tearful; no loss of interest in activities; no significant changes in weight; no sleep disturbances or insomnia; no agitation; no loss of energy; no feelings of worthlessness or guilt; no thoughts of suicide; no history of depression; no history of mood disorders Hearing:no loss of hearing Vision:no vision problems using the oxycodone in the am but only sporadically later in daysleep is ok Rodrigo Mehta DO [address] [place] [address], [phone], [facility] 11/05/2022 09:54:07 3 text/html The patient denies recent falls or recurrent falls. Denies instability, weakness, abnormal gait, or difficulties with movement. The patient wears correct, supportive shoes and is not otherwise severely visually impaired. The patient is full weight bearing and if using the assistance of a cane or walker feels supported and stable with the use of such devices. All medical conditions have been taken into account that may pose a risk for the patient for falls. Home hernando, carpets and/or rugs do not pose a challenge for the patient. The patient has been educated about the use of vitamin D supplementation for bone health and prevention of hypotensive episodes that may increase risk for fall. All question and concerns were answered to the patient's satisfaction. Rodrigo Mehta DO [address] [place] [address], [phone], [facility] 12/10/2022 14:15:31 4 text/html here for rechk for annual wellnessand will be getting lab done soon Rodrigo Mehta DO [address] [place] [address], [phone], [facility] 12/19/2023 14:51:44
== END 2024-12-06 10:54 | disposition home or self-care (01) ==
PROVIDERS: PCP Internal Medicine; Visit Provider Physician Assistant
DX: Z98.1 Arthrodesis status (principal)
CPT/HCPCS: 99213

== ENCOUNTER → 2024-12-06 10:06 | Outpatient (BNVA) | payer MEDICARE, SELFPAY | PROVIDERS: PCP Internal Medicine; Visit Provider Physician Assistant | DX: Z98.1 Arthrodesis status (principal) | CPT/HCPCS: 99212 ==

== ENCOUNTER → 2024-12-23 09:13 | Outpatient (AMB) | payer MEDICARE, SELFPAY ==
--- OUTSIDE RECORDS SUMMARY | 2024-12-23 09:17 | XMS_ITS | Continuity of Care Document ---
Author Organization [facility] Address [address] [address] Assessment Encounter Date Assessment Date Assessment LastModified by Organization Details LastModified Time 12/21/2024 12/21/2024 Patient presente d to office today for their Medicare Annual Wellness Visit. Education was provided on healthy nutrition, including a diet rich in fruits and vegetables, minimizing simple carbohydrates, salt, and saturated fats. Encouraged regular cardiovascular exercise such as walking at least 30 minutes daily, 5 times per week. Emphasized preventive health measures and educated pt on fall prevention and community-based lifestyle interventions to help reduce health risks and promote healthy living. [email or web address] Not available 12/20/2024 11:34:46 Plan of Treatment Reminders Order Date Submit Date Provider Last Modified By Organization Details Last Modified Time Details Appointments None recorded. Lab HbA1c (hemoglobi n A1c), blood 2024 025 [facility], [address] [place] [address], [address], 12:00:18 vitamin D, 25-hydroxy , total, serum 2024 025 [facility], [address] [place] [address], [address], 5 12:00:18 lipid panel, blood 2024 025 [facility], [address] [place] [address], [address], 12:00:18 hemoglobin , gastrointe stinal, stool 2024 025 [facility], [address] [place] [address], [place], [address], 12:00:18 CBC w/ auto diff 2024 [facility], [address] [place] [address], [place], [address], 12:00:18 CMP, serum or plasma 2024 [facility], [address] [place] [address], [address], 12:00:18 Referral None recorded. Procedures None recorded. Surgeries None recorded. Imaging None recorded. Medication Orders meloxicam 15 mg tablet 2024 [facility][id number], [address] [place], [id number], 11:58:22 Patient TargetsNo targets recorded. Patient Instructions Encounter Date Encounter Id Patient Instructions Last Modified By Organization Details Last Modified Time 12/21/2024 [id number] prediabetes: car e instructions Not available 12/21/2024 11:58:19 advance care planning: care instructions Not available 12/21/2024 11:58:20 Discussed and explained advance directives such as standard forms to the {{patient caregiv er patient and caregiver}}. Face to face discussion lasted for a duration of ___ minutes. [email or web address] Not available 12/20/2024 11:34:46 Reason for Referral None Reported. Problems Name Problem SNOMED Code Status Onset Date Resolution Date Notes Provider Name and Address Organization Details Recorded Time Tobacco dependen ce syndrome 38700126 Active 2017 Not Available [facility] 0 12:59:03 Hyperlip idemia 68000950 Active 2017 Not Available [facility] 0 12:59:03 Osteoart hritis of knee 399299566 Active 2017 bilateral Not Available [facility] 0 12:59:03 Polyp of colon 42286096 Active 2017 Not Available [facility] 0 12:59:03 Acute gangreno us appendic itis 73427370 Active 2017 perforati on sepsis Not Available [facility] 0 12:59:03 Chronic obstruct eri pulmonar y disease 99428070 Active 2017 Not Available [facility] 0 12:59:03 Degenera tion of lumbar interver tebral disc 94330404 Active 2017 Not Available [facility] 0 12:59:03 Nummular eczema 18223429 Active 2021 Rodrigo Rodriguez, DO [address] [place] [address], [phone], [facility] 2 11:02:58 Right inguinal hernia 697475416 Active 2022 Rodrigo Rodriguez DO [address] [place] [address], [phone], [facility] 3 23:22:10 Vitamin D deficien cy 86193150 Active 2023 Rodrigo Rodriguez DO [address] [place] [address], [phone], [facility] 4 14:46:16 Impaired fasting glycemia 974999474 Active 2024 Rodrigo Rodriguez DO [address] [place] [address], [phone], [facility] 5 11:57:18 Problem Notes None recorded. Medical Equipment None Reported. [...] BY MOUTH EVERY DAY FOR 3 DAYS 12/21 completed Not Available Not Available Not Available azithromyci n 250 mg tablet TAKE 2 TABLETS BY MOUTH TODAY, THEN TAKE 1 TABLET DAILY FOR 4 DAYS DIRECTED 12/21 completed Not Available Not Available Not Available meloxicam 15 mg tablet Take 1 tablet every day by oral route as needed for 30 days. 2024 active Not Available Not Available Not Avai lable clobetasol 0.05 % topical cream APPLY THIN LAYER TOPICALLY TO THE AFFECTED AREA TWICE DAILY 2024 active Not Available Not Available Not Avai lable triamcinolo ne acetonide 0.1 % topical cream [...] 1 CAPSULE BY MOUTH TWICE A DAY 12/21 completed Not Available Not Available Not Available Guaifenesin AC 10 mg-100 mg/5 mL [...] EVERY FOUR HOURS NEEDED SHORTNESS OF BREATH 12/21 completed Not Available Not Available Not Available oxycodone 5 mg tablet 12/31 completed [...] and Address Organization Details Last Updated DateTime 5 182.88 cm 22.2 kg/m2 34812.1 5 g 78 /min 100 % 100 % 130 mm[Hg] 82 mm[Hg] Trevon Maradiaga [facility] 11:36:15 Social History Question Answer Notes LastModified by Organizat ion Details LastModified Time Tobacco Smoking Status Current Every Day Smoker Not Available [facility] 09/19/2020 03:36:24 What Was The Date Of Your Most Recent Tobacco Screening? 12/21/2024 [email or web address] Information not available 12/21/2024 How Much Tobacco Do You Smoke? 0.5 PPD [id number] Information not available 09/19/2020 Do You Or Have You Ever Used Any Other Forms Of Tobacco Or Nicotine? No Information not available 12/10/2022 Sex: Unknown Functional Status None recorded. Mental Status None recorded. Family History Nothing Reported. Medical History No medical history recorded. Immunizations Vaccine Type Date Status Note Provider Nam e and Address Organization Details Recorded Time zoster recombinant 07/17/20 18 completed Not Available [facility] 03/21/2023 20:33:03 zoster recombinant 10/06/20 18 completed Not Available [facility] 03/21/2023 20:33:03 COVID-19, mRNA, LNP-S, PF, 30 mcg/0.3 mL dose 01/28/20 21 completed Not Available [facility] 03/21/2023 20:33:03 COVID-19, mRNA, LNP-S, PF, 30 mcg/0.3 mL dose 02/18/20 21 completed Not Available [facility] 03/21/2023 20:33:03 COVID-19, mRNA, LNP-S, PF, 30 mcg/0.3 mL dose 11/13/20 21 completed Not Available [facility] 03/21/2023 20:33:03 influenza, unspecified formulation 07/28/20 24 completed Rodrigo Rodriguez, DO [address], [place], [address], [facility] 12/21/2024 12:00:10 Tdap 07/25/20 20 completed Not Available [facility] 03/21/2023 20:33:03 pneumococcal polysaccharide PPV23 07/25/20 20 completed Not Available [facility] 03/21/2023 20:33:03 Influenza, split virus, quadrivalent, preservative 07/25/20 20 completed Not Available [facility] 03/21/2023 20:33:03 Pneumococcal conjugate PCV 13 07/17/20 18 completed Not Available [facility] 03/21/2023 20:33:03 Tdap 07/17/20 18 completed Not Available [facility] 03/21/2023 20:33:03 Past Encounters Encounter ID Performer Location Encounter Start Date Encounter Closed Date Diagnosis/Indication Diagnosis SNOMED-CT Code Diagnosis ICD10 Code Diagnosis Note [id number] Rodrigo Rodriguez DO [facility] [address],[place] [address] 12/21/2024 11:29:40 12/21/2024 12:08:59 Active or passive immunization 011596243 Z23 utd Adult heal th examination 354395109 Z00.00 overall is stable back pain is still the over riding issue with his health despite surgery but he agrees the severe pain is gone now for most parthe wished to quit tobacco long discussion he will try Zyn Screening for cardiovascular system disease 229807106 Z13.6 Screening for malignant neoplasm of colon 365244672 Z12.11 cologuard Depression screening 171 119577 Z13.31 neg Hyperlipidemia 42782642 E78.00 he will need to have more blood work Vitamin D deficiency 347 17535 E55.9 Degenerati on of lumbar intervertebral disc 14915489 M51.[address] Love also is getting eval for hips by [facility] Impaired f asting glycemia 672762379 R73.01 Health Concerns Section Related Observation LastModified by Organization Detai ls LastModified Time None Recorded Concern Status LastModified by Organization Details LastModified Time None Recorded Payers Encounter Date Sequence Insurance Name Policy Number Policy Razo Covered Member ID Razo Member ID Guarantor Name 12/21/2024 2 [facility] SUPP1 Gianni Galeano [id number] 1 Gianni Galeano 12/21/2024 1 MEDICARE [place]: [facility] Gianni Galeano [id number] 3 Gianni Galeano Notes Date Note Type Note Provider Name a nd Address Organization Details Recorded Time 5 text/html Annual WellnessReported bypatient.Diet and Nutrition:healthy diet Fracture Risk:no history of fractures; no recent explained fracture; no sudden unexplained fractures; no previous musculoskeletal injuries Physical Activity:good physical condition; discussed weightbearing activities; discussed exercise habits Additional Lifestyle Factors:no alcohol intake; stopped drinking alcohol;tobacco use Depression Risk:never feels sad, empty, or tearful; no loss of interest in activities; no significant changes in weight; no sleep disturbances or insomnia; no agitation; no loss of energy; no feelings of worthlessness or guilt; no thoughts of suicide; no history of depression; no history of mood disorders Hearing:no loss of hearing Vision:no vision problemsNotes:joints have been bothering him a lot over the past 4 monthsalso he has noticed a couple of months a bulging along prior surg incisionalso his trigger finger is catching still left 3rd finger Rodrigo Rodriguez, DO [address] [place], [address], [facility] 12/21/2024 12:00:24
--- OUTSIDE RECORDS SUMMARY | 2024-12-23 09:17 | XMS_ITS | Data Portability ---
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 Lab CMP, serum or plasma 2020 021 [facility], [address] [place] [address], [place], [address], 15:02:07 CBC w/ auto diff 2020 [facility], [address] [place] [address], [address], 17:02:54 lipid panel, blood 2020 [facility], [address] [place] [address], [address], 15:02:08 PSA, serum or plasma 2020 [facility], [address] [place] [address], [address], 09:20:34 vitamin D, 25-hydroxy , total, serum 2020 [facility], [address] [place] [address], [address], 15:02:08 vitamin B12, serum 2020 [facility], [address] [place] [address], [address], 09:20:34 CMP, serum or plasma 2021 022 [facility], [address] [place] [address], [address], 2 11:14:12 CBC w/ auto diff 2021 [facility], [address] [place] [address], [address], 2 11:14:12 PSA, serum or plasma 2021 022 [facility], [address] [place] [address], [address], 2 11:14:12 vitamin D, 25-hydroxy , total, serum 2021 022 [facility], [address] [place] [address], [address], 2 11:14:12 HbA1c (hemoglobi n A1c), blood 2021 022 [facility], [address] [place] [address], [address], 2 11:14:12 vitamin B12, serum 2021 022 [facility], [address] [place] [address], [address], 2 11:14:12 vitamin D, 25-hydroxy , total, serum 2023 024 [facility], [address] [place] [address], [address], 4 14:48:22 vitamin B12, serum 2023 024 [facility], [address] [place] [address], [address], 4 12:53:47 CMP, serum or plasma 2023 024 [facility], [address] [place] [address], [address], 4 14:48:22 CBC w/ auto diff 2023 024 [facility], [address] [place] [address], [address], 4 12:31:12 PSA, serum or plasma 2023 024 [facility], [address] [place] [address], [address], 4 12:37:59 lipid panel, blood 2023 024 [facility], [address] [place] [address], [address], 4 12:38:35 HbA1c (hemoglobi n A1c), blood 2024 025 [facility], [address] [place] [address], [address], 5 12:00:18 vitamin D, 25-hydroxy , total, serum 2024 025 [facility], [address] [place] [address], [address], 5 12:00:18 lipid panel, blood 2024 025 [facility], [address] [place] [address], [address], 5 12:00:18 hemoglobin , gastrointe stinal, stool 2024 025 [facility], [address] [place] [address], [address], 5 12:00:18 CBC w/ auto diff 2024 025 [facility], [address] [place] [address], [address], 5 12:00:18 CMP, serum or plasma 2024 025 [facility], [address] [place] [address], [address], 5 12:00:18 Referral orthopedic spine surgeon referral - please eval pt for possibilit y of sacral injections . he has been through numerous procedures in the past all of which have not helped and i think they were looking in the wrong place. eri included some of the prior consults to give you an idea. thanks rodrigo stanley. 2022 023 walker Chavez MD, [address], [place], [address], 08:41:48 Procedures None recorded. Surgeries None recorded. Imaging None recorded. Medication Orders oxycodone 10 mg tablet 2023 024 [facility]/Pharmacy #2024, [address] [place], [address], 4 14:50:40 meloxicam 15 mg tablet 2024 025 [facility]acy #2024, [address] [place], [address], 5 11:58:22 Patient TargetsNo targets recorded. Patient Instructions Encounter Date Encounter Id Patient Instructions Last Modified By Organization Details Last Modified Time 10/23/2021 [id number] needs flu shot Not available 10/23/2021 09:21:20 [...] 10mins* 10+mins}} Not available 10/23/2021 09:20:19 12/10/2022 [id number] pulse oximetry* Not available 12/10/2022 14:02:43 12/21/2024 [id number] prediabetes: car e instructions Not available 12/21/2024 11:58:19 advance care planning: care instructions Not available 12/21/2024 11:58:20 Discussed and explained advance directives such as standard forms to the {{patient caregiv er patient and caregiver}}. Face to face discussion lasted for a duration of ___ minutes. [email or web address] Not available 12/20/2024 11:34:46 Reason for Referral Orthopedic Spine Surgeon Ref erral for Degeneration of lumbar intervertebral disc please eval pt for possibility of sacral injections. he has been through numerous procedures in the past all of which have not helped and i think they were looking in the wrong place. eri included some of the prior consults to give you an idea. thanks rodrigo stanley. Referring Physician: Rodrigo Rodriguez, Internal Medicine, Encounter Date: 12/10/2022 Results Created Date Observation Date Name Description Value Unit Range Abnormal Flag Note LastModifiedBy Organization Detail LastModifiedTime 10/03/2010/03/2021 pulse oxime try* Result 98 Not Available [facility] [address], [place], [address], 10/03/2021 13:48:07 12/10/19 23 12/10/2022 pulse oxime try* Result 98 Not Available [facility] [address], [place], [address], 12/09/2022 16:21:30 10/29/20 21 10/29/2021 MRI, lumba r spine , w/o contr ast No observ ation record ed. tbalicki [facility] [address] [place], [address], 10/29/2021 16:10:45 09/08/20 23 09/02/2023 bryn CASTRO No observ ation record ed. [facility] (Medical Records) [address] [place], [address], 12/19/2023 14:41:07 Result Notes None recorded. Problems Name Problem SNOMED Code Status Onset Date Resolution Date Notes Provider Name and Address Organization Details Recorded Time Tobacco dependen ce syndrome 73242059 Active 2017 Not Available [facility] 0 12:59:03 Hyperlip idemia 85136097 Active 2017 Not Available [facility] 0 12:59:03 Osteoart hritis of knee 061785943 Active 2017 bilateral Not Available [facility] 0 12:59:03 Polyp of colon 71156394 Active 2017 Not Available [facility] 0 12:59:03 Acute gangreno us appendic itis 44679101 Active 2017 perforati on sepsis Not Available [facility] 0 12:59:03 Chronic obstruct eri pulmonar y disease 03906996 Active 2017 Not Available [facility] 0 12:59:03 Degenera tion of lumbar interver tebral disc 46006309 Active 2017 Not Available [facility] 0 12:59:03 Nummular eczema 67014611 Active 2021 Rodrigo Rodriguez DO [address] [place] [address], [address], [facility] 2 11:02:58 Right inguinal hernia 668223564 Active 2022 Rodrigo Rodriguez DO [address] [place] [address], [address], [facility] 3 23:22:10 Vitamin D deficien cy 36716955 Active 2023 Rodrigo Rodriguez DO [address] [place] [address], [address], [facility] 4 14:46:16 Impaired fasting glycemia 837884586 Active 2024 Rodrigo Rodriguez DO [address] [place] [address], [address], [facility] 5 11:57:18 Problem Notes None recorded. Procedures Surgical History None recorded. Imaging Results Imaging Date Name Status LastModified by Organiz ation Details LastModified Time 10/29/2021 MRI, lumbar spine, w/o contrast completed [email or web address] [facility] [address] , [place], [address], 10/29/2021 16:10:45 09/02/2023 RF, guidance completed [facility] (Medical Records) [address], [place], [address], 12/19/2023 14:41:07 Procedure Notes None recorded. Medical [...] Updated DateTime 1 180.98 cm 26 kg/m2 82946.6 5 g 80 /min 96 % 96 % 132 mm[Hg] 70 mm[Hg] Natalie Olson [facility] 1 09:00:09 Date Recorded Body height Body mass index (BMI) Body weight Oxygen saturation Oxygen saturation in Arterial blood by Pulse oximetry Heart rate Systolic blood pressure Diastolic blood pressure Provider Name and Address Organization Details Last Updated DateTime 2 180.98 cm 24.4 kg/m2 05539.2 6 g 97 % 97 % 83 /min 110 mm[Hg] 62 mm[Hg] Maci Kimbrough [facility] 2 09:29:21 Date Recorded Body height Body mass index (BMI) Body weight Heart rate Oxygen saturation Oxygen saturation in Arterial blood by Pulse oximetry Systolic blood pressure Diastolic blood pressure Provider Name and Address Organization Details Last Updated DateTime 3 180.98 cm 24.2 kg/m2 06577.6 6 g 70 /min 98 % 98 % 132 mm[Hg] 78 mm[Hg] Rodrigo Rodriguez, DO [address] [place], [address], [facility] 3 13:44:14 Date Recorded Body height Body mass index (BMI) Body weight Heart rate Oxygen saturation Oxygen saturation in Arterial blood by Pulse oximetry Systolic blood pressure Diastolic blood pressure Provider Name and Address Organization Details Last Updated DateTime 4 180.34 cm 24.4 kg/m2 62663.6 6 g 88 /min 98 % 98 % 118 mm[Hg] 70 mm[Hg] Analy Gironmond [facility] 4 14:22:21 Date Recorded Body height Body mass index (BMI) Body weight Heart rate Oxygen saturation Oxygen saturation in Arterial blood by Pulse oximetry Systolic blood pressure Diastolic blood pressure Provider Name and Address Organization Details Last Updated DateTime 5 182.88 cm 22.2 kg/m2 43492.1 5 g 78 /min 100 % 100 % 130 mm[Hg] 82 mm[Hg] Trevon Maradiaga [facility] 5 11:36:15 Social History Question Answer Notes LastModified by Organizat ion Details LastModified Time Tobacco Smoking Status Current Every Day Smoker Not Available [facility] 09/19/2020 03:36:24 What Was The Date Of Your Most Recent Tobacco Screening? 12/21/2024 [email or web address] Information not available 12/21/2024 How Much Tobacco Do You Smoke? 0.5 PPD [id number] Information not available 09/19/2020 Do You Or [...] zoster recombinant 07/17/20 18 completed Not Available [facility] 03/21/2023 20:33:03 zoster recombinant 10/06/20 18 completed Not Available [facility] 03/21/2023 20:33:03 COVID-19, mRNA, LNP-S, PF, 30 mcg/0.3 mL dose 01/28/20 21 completed Not Available [facility] 03/21/2023 20:33:03 COVID-19, mRNA, LNP-S, PF, 30 mcg/0.3 mL dose 02/18/20 21 completed Not Available [facility] 03/21/2023 20:33:03 COVID-19, mRNA, LNP-S, PF, 30 mcg/0.3 mL dose 11/13/20 21 completed Not Available [facility] 03/21/2023 20:33:03 influenza, unspecified formulation 07/28/20 24 completed Rodrigo Rodriguez DO [address] [place], [address], [facility] 12/21/2024 12:00:10 Tdap 07/25/20 20 completed Not Available [facility] 03/21/2023 20:33:03 pneumococcal polysaccharide PPV23 07/25/20 20 completed Not Available [facility] 03/21/2023 20:33:03 Influenza, split virus, quadrivalent, preservative 07/25/20 20 completed Not Available [facility] 03/21/2023 20:33:03 Pneumococcal conjugate PCV 13 07/17/20 18 completed Not Available [facility] 03/21/2023 20:33:03 Tdap 07/17/20 18 completed Not Available [facility] 03/21/2023 20:33:03 Past Encounters Encounter ID Performer Location Encounter Start Date Encounter Closed Date Diagnosis/Indication Diagnosis SNOMED-CT Code Diagnosis ICD10 Code Diagnosis Note [id number] Rodrigo Rodriguez DO [facility] [address],[place] [address] 06/29/2018 13:32:19 06/29/2018 15:20:14 Hyperlipidemia 55545636 E78.00 Tobacco de pendence syndrome 16681220 F17.200 refuses to quit Chronic ob structive pulmonary disease 40338342 J44.9 relates he does not feel sob Degenerati on of lumbar intervertebral disc 75036115 M51.36 marked progressio n of the lumbar [...] provide oxycodone in the short term Eczema 80026015 L30.9 [id number] [facility] [address] [address] 07/17/2018 13:26:02 07/17/2018 14:21:07 Degeneration of lumbar intervertebral disc 53551317 M51.36 marked progressio n of the lumbar [...] will provide oxycodone in the short term [id number] Marge Chung NP, [address] [address] 09/07/2018 14:11:58 09/07/2018 15:18:54 Cervico-occipital neuralgia 14371514 M54.81 Chronic low back pain 27 1919418 M54.5 [id number] Marge Chung NP, [address] [address] 11/02/2018 14:44:15 11/02/2018 15:55:41 On examination - rash present 564102180 R21 Moisturize after shower and before bed daily, prn benadryl, call if worsens or no relief Neck pain 82234581 M54.2 Chronic low back pain 27 7146960 M54.5 [id number] [facility] [address] [address] 08/23/2019 11:05:42 08/23/2019 12:25:47 Pre-surgery evaluation 122358103 Z01.818 this patient is cleared for the proposed catarct procedure. According to the acc 2017 risk strat. (revised) he is considered an low risk. Pt knows to take his usual medication s on the morning of surgery. [id number] Rodrigo Rodriguez [facility] [address] [facility], [place] [address] 07/03/2020 11:43:51 07/03/2020 12:17:08 Renewal of prescription 788836404 Z76.0 oxycodone Degenerati on of lumbar intervertebral disc 56008092 M51.36 marked progressio n of the lumbar [...] short term Chronic ob structive pulmonary disease 06315192 J44.9 relates he does not feel sob still smoking Lesion of skin of left ear 5736985274 0160910 H93.8X2 [id number] Rodrigo Darren Rodriguez [facility] [address], [place] [address] 12/13/2020 08:44:58 12/13/2020 15:12:53 Degeneration of lumbar intervertebral disc 02916842 M51.36 marked progressio n of the lumbar [...] workup for intratheca l pain management Hyperlipidemia 08942882 E78.00 he will need to have more blood work Osteoarthr itis of knee 016956965 M17.9 he will need to have this monitored and send to ortho if need Tobacco de pendence syndrome 32615058 F17.200 refuses to quit [id number] Rodrigo Rodriguez [facility] [address], [place] [address] 10/03/2021 13:45:28 10/03/2021 16:13:10 Degeneration of lumbar intervertebral disc 43657131 M51.36 marked progressio n of the lumbar [...] spinal nerve stimulator given the failure of [facility] i feel very strongly that we need to repaeat an MRI and find out the progressio n of his spinal disease and following that we will have him referred to dr Giovanni VALVERDE Chronic ob structive pulmonary disease 79934412 J44.9 relates he does not feel sob still smoking Hyperlipidemia 18156600 E78.00 he will need to have more blood work [id number] Rodrigo Rodriguez [facility] [address] [facility] [address] 10/23/2021 08:55:14 10/23/2021 13:48:04 Active or passive immunization 810649657 Z23 utd Adult heal th examination 789451133 Z00.00 [id number] Rodrigo Rodriguez [facility] [address],[place] [address] 11/05/2022 09:17:08 11/05/2022 10:38:47 Active or passive immunization 317456909 Z23 utd Adult heal th examination 275662613 Z00.01 overall is stable back pain is still the over riding issue with his healthit is interferin g with his adl's Chronic ob structive pulmonary disease 23919891 J44.9 relates he does not feel sob still smoking [id number] Rodrigo Rodriguez [facility] [address] [facility],[place] [address] 12/10/2022 13:39:33 12/11/2022 08:48:25 Chronic obstructive pulmonary disease 98357316 J44.9 relates he does not feel sob still smoking Degenerati on of lumbar intervertebral disc 59177456 M51.36 [id number] Rodrigo Rodriguez [facility] [address] [facility],[place] [address] 12/19/2023 14:17:20 12/22/2023 14:21:23 Adult health examination 811909621 Z00.01 overall is stable back pain is still the over riding issue with his health despite surgery but he agrees the severe pain is gone now for most parthe wished to quit tobacco long discussion he will try Zyn Vitamin D deficiency 347 61302 E55.9 Degenerati on of lumbar intervertebral disc 87971827 M51.36 [id number] DO [facility] [address],[place] [address] 12/21/2024 11:29:40 12/21/2024 12:08:59 Active or passive immunization 921563779 Z23 utd Adult heal th examination 273272565 Z00.00 overall is stable back pain is still the over riding issue with his health despite surgery but he agrees the severe pain is gone now for most parthe wished to quit tobacco long discussion he will try Zyn Screening for cardiovascular system disease 502871635 Z13.6 Screening for malignant neoplasm of colon 099843152 Z12.11 cologuard Depression screening 171 973842 Z13.31 neg Hyperlipidemia 46984650 E78.00 he will need to have more blood work Vitamin D deficiency 347 14884 E55.9 Degenerati on of lumbar intervertebral disc 83292006 M51.[address] Love also is getting eval for hips by [facility] Impaired f asting glycemia 938252111 R73.01 Health Concerns Section Related Observation LastModified by Organization Detai ls LastModified Time None Recorded Concern Status LastModified by Organization Details LastModified Time None Recorded Advance Directives Directive None Recorded Payers Encounter Date Sequence Insurance Name Policy Number Policy Razo Covered Member ID Razo Member ID Guarantor Name 10/23/2021 2 [facility] SUPP1 Gianni A Camp [id number] 1 Gianni Camp 10/23/2021 1 MEDICARE [place]: [facility] Gianni A Camp [id number] 3 Gianni Camp 11/05/2022 2 [facility] SUPP1 Gianni A Camp [id number] 1 Gianni Camp 11/05/2022 1 MEDICARE [place]: [employer]ATIONAL [employer] Gianni A Camp [id number] 3 Gianni Camp 12/10/2022 2 [facility] SUPP1 Gianni A Camp [id number] 1 Gianni Camp 12/10/2022 1 [place] [facility] Gianni Lees [place] [id number] [facility]23 2 [facility] SUPP1 Gianni Lees [place] [id number] 1 [facility] 12/19/2023 1 [place] [facility] Gianni Lees [place] [id number] 3 [facility] 12/21/2024 2 [facility] SUPP1 Gianni Lees [place] [id number] 1 [facility] 12/21/2024 1 [place] [facility] Gianni Lees [place] [id number] 3 [facility] Notes Date Note Type Note Provider Name a ut Address Organization Details Recorded Time 1 text/html Annual WellnessReported bypatient.Diet and Nutrition:healthy [...] longergoes for repeat MRI this month Rodrigo Rodriguez, DO [address] [place], [address], [facility] 10/23/2021 09:26:45 2 text/html Annual [...] sporadically later in daysleep is ok Rodrigo RodriguezDO [address] [place] [address], [address], [facility] 11/05/2022 09:54:07 3 text/html The [...] were answered to the patient's satisfaction. Rodrigo LeesElaine Rodriguez DO [address] [place] [address], [address], [facility] Internal [facility] 12/10/2022 14:15:31 4 text/html here for rechk for annual wellnessand will be getting lab done soon Rodrigo LeesElaine Rodriguez DO [address] [place] [address], [address], [facility] Internal [facility] 12/19/2023 14:51:44 5 text/html Annual WellnessReported bypatient.Diet and Nutrition:healthy [...] left 3rd finger Rodrigo Rodriguez, DO [address] [facility], [place], [address], [facility] 12/21/2024 12:00:24
--- NOTE | 2024-12-23 09:29 | A.OFFVIS_ITS ---
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 [facility] Fusion 07/08/23 & 09/02/23 - They believe that his continued pain is due to his hip rather than back. Patient reports that he is having sharp pain in the right side of this lower back/ upper butt. His pain is aggravated with movement. He is taking Oxycodone 10mg QD as well as tylenol . His pain is worst first thing in the morning. Hx of Left ZAN in about 2016 at [facility]. 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 He has seen Dr. Awan in the past for SI joint pain and had a procedure which did relieve the discomfort however he continued to have lateral-sided right hip pain which was worse with prolonged standing and sleeping at night. He associates this discomfort for when he started using a laser and standing for a while and shifting positions back and forth on his legs. [facility] Medical History (Updated 12/23/24 @ 09:54 by Helen Collins PA-C) COPD (chronic obstructive pulmonary disease) Postlaminectomy syndrome Sacroiliitis, not elsewhere classified Other specified mononeuropathies Hx of degenerative disc disease Elevated cholesterol Back pain Arthritis Surgical History (Updated 09/23/23 @ 14:29 by REBEKAH Wilson) Hx of right inguinal hernia repair Hx of prior ablation treatment Hx of appendectomy History of total hip replacement Hx of decompressive lumbar laminectomy Social History Are you a primary daycare teacher to a significant other at home: No Do you presently have visiting nurse or other home services: No Patient Tobacco Use Status: Current everyday Tobacco user Tobacco use type: Cigarette Cigarette Packs Per Day: 0.5 Cigarettes Per Day: 12 Years Smoked: 60 Review of Systems Const All systems reviewed & are unremarkable except as noted in HPI and below Physical Exam Const General: cooperative and no acute distress Orientation/consciousness: patient oriented x3 Resp Effort & Inspection: normal respiratory effort and able to speak in complete sentences Cardio Peripheral pulses: Peripheral pulses 2+ throughout Neuro General: patient oriented x3 Extrem Other: Right hip normal to inspection. No pain with ROM of the hip. Pain along the greater trochanter. No pain with hip flexion or abduction.There is tenderness al evelyn the si joint, Negative SLR. NVI. Office Procedures AMB Joint Injection/Aspiration Joint Injection/Aspiration Details: Right trochanteric bursa Prep: site was prepped using aseptic technique, ethochloride spray was applied and injection warnings given Injected: 80 mg of, DepoMedrol, with 8 mL of and 1% plain lidocaine Procedure: The patient tolerated the procedure well and there was some relief with the local anesthesia Coding 12623 - Glenohumeral/Tronchanteric Bursa/Intraarticular Procedure code (CPT) selection complete Results Reviewed Results Reviewed: X-rays of the right hip obtained in the office today show moderate arthritis of the hip. Assessment & Plan Assessment & Plan (1) Trochanteric bursitis, right hip: Code(s): M70.61 - Trochanteric bursitis, right hip Category: Medical Plan: We discussed options today which include physical therapy and steroid injection. He did consent to proceed with right hip trochanteric bursa injection which he tolerated well. I put in an order for physical therapy which she will attend to work on strengthening and stretching exercises. He will increase activities as tolerated and if symptoms persist or worsen he will contact our office otherwise follow-up as needed. Orders: Orders XR hip RT min 2V Today M25.551 - Pain in right hip PT Evaluation and Treatment Today M70.61 - Trochanteric bursitis, right hip Coding Level of Care Code New Pt Level 3 (95777) Complex EM visit Add On G2211 Diagnoses Trochanteric bursitis, right hip M70.61 CPT Codes Coding - Joint 7: 14578 - Glenohumeral/Tronchanteric Bursa/Intraarticular ([id number])
== END | disposition home or self-care (01) ==
PROVIDERS: PCP Internal Medicine; Visit Provider Physician Assistant
CPT/HCPCS: 20610; 99203

== ENCOUNTER → 2024-12-23 09:20 | Outpatient (BNV) | payer MEDICARE, SELFPAY | PROVIDERS: Visit Provider Radiology Diagnostic Radiology | DX: M25.551 Pain in right hip (principal); M25.851 Other specified joint disorders, right hip | CPT/HCPCS: 73502 ==

== ENCOUNTER 2024-12-23 11:48 | Outpatient (REF) | payer MEDICARE, SELFPAY ==
--- NOTE | ~2024-12-23 | XR_ITS ---
EXAMINATION: XR HIP 2 OR MORE VIEWS RIGHT HISTORY: M25.551 - Pain in right hip COMPARISON: Correlation is made with a plain film of the pelvis dated 10/31/2023. FINDINGS: Two AP views of the pelvis and two views of the right hip are submitted. Osseous mineralization is normal. There is no fracture or dislocation. Again seen is mild to moderate joint space narrowing. The patient is status post left total hip arthroplasty. The soft tissues are unremarkable. XR/XR hip RT min 2V IMPRESSION: Mild to moderate joint space narrowing. Electronically signed by: Valdo Craig MD 12/23/2024 10:30 AM [facility]
--- OUTSIDE RECORDS SUMMARY | 2024-12-24 12:47 | XMS_ITS | Continuity of Care Document ---
Author Organization [facility] Address [address] [place] [address] Assessment Encounter Date Assessment Date Assessment LastModified [...] HbA1c (hemoglobi n A1c), blood 2024 025 [facility], [address] [place] [address], [address], 12:00:18 vitamin D, 25-hydroxy , total, serum 2024 025 [facility], [address] [place] [address], [id number], 5 12:00:18 lipid panel, blood 2024 025 [facility], [address] [place] [address], [id number], 12:00:18 hemoglobin , gastrointe stinal, stool 2024 025 [facility], [address] [place] [address], [place], [address], 12:00:18 CBC w/ auto diff 2024 [facility], [address] [place] [address], [place], [address], 12:00:18 CMP, serum or plasma 2024 [facility], [address] [place] [address], [id number], 12:00:18 Referral None recorded. Procedures None recorded. Surgeries None recorded. Imaging None recorded. Medication Orders meloxicam 15 mg tablet 2024 [id number], [address] [place], [address], 11:58:22 Patient TargetsNo targets recorded. Patient Instructions Encounter Date Encounter Id Patient Instructions Last Modified By Organization Details Last Modified Time 12/21/2024 [id number] prediabetes: car e instructions Not available 12/21/2024 [...] Details Recorded Time Tobacco dependen ce syndrome 07263179 Active 2017 Not Available [facility] 0 12:59:03 Hyperlip idemia 74261196 Active 2017 Not Available [facility] 0 12:59:03 Osteoart hritis of knee 065712056 Active 2017 bilateral Not Available [facility] 0 12:59:03 Polyp of colon 02893098 Active 2017 Not Available [facility] 0 12:59:03 Acute gangreno us appendic itis 48420365 Active 2017 perforati on sepsis Not Available [facility] 0 12:59:03 Chronic obstruct eri pulmonar y disease 26877695 Active 2017 Not Available [facility] 0 12:59:03 Degenera tion of lumbar interver tebral disc 18458580 Active 2017 Not Available [facility] 0 12:59:03 Nummular eczema 55753412 Active 2021 Rodrigo Rodriguez, DO [address] [place] [address], [id number], [facility] 2 11:02:58 Right inguinal hernia 807496865 Active 2022 Rodrigo Rodriguez DO [address] [place] [address], [phone], [facility] 3 23:22:10 Vitamin D deficien cy 89130905 Active 2023 Rodrigo Rodriguez DO [address] [place] [address], [id number], [facility] 4 14:46:16 Impaired fasting glycemia 998883475 Active 2024 Rodrigo Rodriguez DO [address] [place] [address], [id number], [facility] 5 11:57:18 Problem Notes None [...] Updated DateTime 5 182.88 cm 22.2 kg/m2 83338.1 5 g 78 /min 100 % 100 % 130 mm[Hg] 82 mm[Hg] Trevon Maradiaga [facility] 11:36:15 Social History Question Answer Notes LastModified by Organizat ion Details LastModified Time Tobacco Smoking Status Current Every Day Smoker Not Available [facility] 09/19/2020 03:36:24 What Was The Date Of Your Most Recent Tobacco Screening? 12/21/2024 [email or web address] Information not available 12/21/2024 How Much Tobacco Do You Smoke? 0.5 PPD [id number] Information not available 09/19/2020 Do You Or [...] zoster recombinant 07/17/20 18 completed Not Available [facility] 03/21/2023 20:33:03 zoster recombinant 10/06/20 18 completed Not Available [facility] 03/21/2023 20:33:03 COVID-19, mRNA, LNP-S, PF, 30 mcg/0.3 mL dose 01/28/20 21 completed Not Available [facility] 03/21/2023 20:33:03 COVID-19, mRNA, LNP-S, PF, 30 mcg/0.3 mL dose 02/18/20 21 completed Not Available [facility] 03/21/2023 20:33:03 COVID-19, mRNA, LNP-S, PF, 30 mcg/0.3 mL dose 11/13/20 21 completed Not Available [facility] 03/21/2023 20:33:03 influenza, unspecified formulation 07/28/20 24 completed Rodrigo Rodriguez, DO [address], [place], [address], [facility] 12/21/2024 12:00:10 Tdap 07/25/20 20 completed Not Available [facility] 03/21/2023 20:33:03 pneumococcal polysaccharide PPV23 07/25/20 20 completed Not Available [facility] 03/21/2023 20:33:03 Influenza, split virus, quadrivalent, preservative 07/25/20 20 completed Not Available [facility] 03/21/2023 20:33:03 Pneumococcal conjugate PCV 13 07/17/20 18 completed Not Available [facility] 03/21/2023 20:33:03 Tdap 07/17/20 18 completed Not Available [facility] 03/21/2023 20:33:03 Past Encounters Encounter ID Performer Location Encounter Start Date Encounter Closed Date Diagnosis/Indication Diagnosis SNOMED-CT Code Diagnosis ICD10 Code Diagnosis Note [id number] Rodrigo Rodriguez DO [facility] [address],[place] [address] 12/21/2024 11:29:40 12/21/2024 12:08:59 Active or passive immunization 137200403 Z23 utd Adult heal th examination 676147143 Z00.00 overall is stable back pain is still the over riding issue with his health despite surgery but he agrees the severe pain is gone now for most parthe wished to quit tobacco long discussion he will try Zyn Screening for cardiovascular system disease 185741951 Z13.6 Screening for malignant neoplasm of colon 117896279 Z12.11 cologuard Depression screening 171 433723 Z13.31 neg Hyperlipidemia 82151320 E78.00 he will need to have more blood work Vitamin D deficiency 347 82223 E55.9 Degenerati on of lumbar intervertebral disc 47301292 M51.[address] Love also is getting eval for hips by [facility] Impaired f asting glycemia 813398182 R73.01 Health Concerns Section Related Observation LastModified by Organization Detai ls LastModified Time None Recorded Concern Status LastModified by Organization Details LastModified Time None Recorded Payers Encounter Date Sequence Insurance Name Policy Number Policy Razo Covered Member ID Razo Member ID Guarantor Name 12/21/2024 2 [facility] SUPP1 Gianni Galeano [id number] Gianni Galeano 12/21/2024 1 MEDICARE B-ME: [facility] Gianni Galeano [id number] Gianni Galeano Notes Date Note Type [...] left 3rd finger Rodrigo Rodriguez, DO [address] [place], [address], [facility] 12/21/2024 12:00:24
--- OUTSIDE RECORDS SUMMARY | 2024-12-24 12:47 | XMS_ITS | Data Portability ---
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 MUST MEET 2 OF [...] Lab CMP, serum or plasma 2020 021 [facility], [address] [place] [address], [place], [address], 15:02:07 CBC w/ auto diff 2020 [facility], [address] [place] [address], [address], 17:02:54 lipid panel, blood 2020 [facility], [address] [place] [address], [address], 15:02:08 PSA, serum or plasma 2020 [facility], [address] [place] [address], [address], 09:20:34 vitamin D, 25-hydroxy , total, serum 2020 [facility], [address] [place] [address], [address], 15:02:08 vitamin B12, serum 2020 [facility], [address] [place] [address], [address], 09:20:34 CMP, serum or plasma 2021 022 [facility], [address] [place] [address], [address], 2 11:14:12 CBC w/ auto diff 2021 [facility], [address] [place] [address], [address], 2 11:14:12 PSA, serum or plasma 2021 022 [facility], [address] [place] [address], [address], 2 11:14:12 vitamin D, 25-hydroxy , total, serum 2021 022 [facility], [address] [place] [address], [address], 2 11:14:12 HbA1c (hemoglobi n A1c), blood 2021 022 [facility], [address] [place] [address], [address], 2 11:14:12 vitamin B12, serum 2021 022 [facility], [address] [place] [address], [address], 2 11:14:12 vitamin D, 25-hydroxy , total, serum 2023 024 [facility], [address] [place] [address], [address], 4 14:48:22 vitamin B12, serum 2023 024 [facility], [address] [place] [address], [address], 4 12:53:47 CMP, serum or plasma 2023 024 [facility], [address] [place] [address], [address], 4 14:48:22 CBC w/ auto diff 2023 024 [facility], [address] [place] [address], [address], 4 12:31:12 PSA, serum or plasma 2023 024 [facility], [address] [place] [address], [address], 4 12:37:59 lipid panel, blood 2023 024 [facility], [address] [place] [address], 95[address], 4 12:38:35 HbA1c (hemoglobi n A1c), blood 2024 025 [facility], [address] [place] [address], [address], 5 12:00:18 vitamin D, 25-hydroxy , total, serum 2024 025 [facility], [address] [place] [address], [address], 5 12:00:18 lipid panel, blood 2024 025 [facility], [address] [place] [address], [address], 5 12:00:18 hemoglobin , gastrointe stinal, stool 2024 025 [facility], [address] [place] [address], [address], 5 12:00:18 CBC w/ auto diff 2024 025 [facility], [address] [place] [address], [address], 5 12:00:18 CMP, serum or plasma 2024 025 [facility], [address] [place] [address], [address], 5 12:00:18 Referral orthopedic spine surgeon referral [...] Chavez MD, [address], [place], [address], 08:41:48 Procedures None recorded. Surgeries None recorded. Imaging None recorded. Medication Orders oxycodone 10 mg tablet 2023 024 [facility], [address] [place], [address], 4 14:50:40 meloxicam 15 mg tablet 2024 025 [facility]2024, [address] [place], [address], 5 11:58:22 Patient TargetsNo targets recorded. Patient Instructions Encounter Date Encounter Id Patient Instructions Last Modified By Organization Details Last Modified Time 10/23/2021 [id number] needs flu shot Not available 10/23/2021 09:21:20 [...] 10mins* 10+mins}} Not available 10/23/2021 09:20:19 12/10/2022 [id number] pulse oximetry* Not available 12/10/2022 14:02:43 12/21/2024 [id number] prediabetes: car e instructions Not available 12/21/2024 [...] pulse oxime try* Result 98 Not Available [facility] [address] [facility] [address], [place], [address], 10/03/2021 13:48:07 12/10/19 23 12/10/2022 pulse oxime try* Result 98 Not Available [facility] [address] [facility] [address], [place], [address], 12/09/2022 16:21:30 10/29/20 21 10/29/2021 MRI, lumba r spine , w/o contr ast No observ ation record ed. tbalicki [facility] [address] [place], [address], 10/29/2021 16:10:45 09/08/20 23 09/02/2023 bryn CASTRO No observ ation record ed. [facility] (Medical Records) [address] [place], [address], 12/19/2023 14:41:07 Result Notes None recorded. Problems Name Problem SNOMED Code Status Onset Date Resolution Date Notes Provider Name and Address Organization Details Recorded Time Tobacco dependen ce syndrome 21846281 Active 2017 Not Available [facility] 0 12:59:03 Hyperlip idemia 77121066 Active 2017 Not Available [facility] 0 12:59:03 Osteoart hritis of knee 743948308 Active 2017 bilateral Not Available [facility] 0 12:59:03 Polyp of colon 47832851 Active 2017 Not Available [facility] 0 12:59:03 Acute gangreno us appendic itis 42301810 Active 2017 perforati on sepsis Not Available [facility] 0 12:59:03 Chronic obstruct eri pulmonar y disease 48993507 Active 2017 Not Available [facility] 0 12:59:03 Degenera tion of lumbar interver tebral disc 73991307 Active 2017 Not Available [facility] 0 12:59:03 Nummular eczema 43533405 Active 2021 Rodrigo Rodriguez DO [address] [place] [address], [address], [facility] 2 11:02:58 Right inguinal hernia 307663751 Active 2022 Rodrigo Rodriguez DO [address] [place] [address], [address], [facility] 3 23:22:10 Vitamin D deficien cy 89168445 Active 2023 Rodrigo Rodriguez DO [address] [place] [address], [address], [facility] 4 14:46:16 Impaired fasting glycemia 037785241 Active 2024 Rodrigo Rodriguez DO [address] [place] [address], [address], [facility] 5 11:57:18 Problem Notes None recorded. Procedures Surgical History None recorded. Imaging Results Imaging Date Name Status LastModified by Organiz ation Details LastModified Time 10/29/2021 MRI, lumbar spine, w/o contrast completed tbalii [facility] [address] , [place], [address], 10/29/2021 16:10:45 09/02/2023 RF, guidance completed [facility] (Medical Records) [address] [facility], [place], [address], 12/19/2023 14:41:07 Procedure Notes None recorded. Medical [...] Updated DateTime 1 180.98 cm 26 kg/m2 07089.6 5 g 80 /min 96 % 96 % 132 mm[Hg] 70 mm[Hg] Natalie Olson [facility] 1 09:00:09 Date Recorded Body height Body mass index (BMI) Body weight Oxygen saturation Oxygen saturation in Arterial blood by Pulse oximetry Heart rate Systolic blood pressure Diastolic blood pressure Provider Name and Address Organization Details Last Updated DateTime 2 180.98 cm 24.4 kg/m2 58101.2 6 g 97 % 97 % 83 /min 110 mm[Hg] 62 mm[Hg] Maci Kimbrough [facility] 2 09:29:21 Date Recorded Body height Body mass index (BMI) Body weight Heart rate Oxygen saturation Oxygen saturation in Arterial blood by Pulse oximetry Systolic blood pressure Diastolic blood pressure Provider Name and Address Organization Details Last Updated DateTime 3 180.98 cm 24.2 kg/m2 61395.6 6 g 70 /min 98 % 98 % 132 mm[Hg] 78 mm[Hg] Rodrigo Rodriguez, DO [address] [place], [address], [facility] 3 13:44:14 Date Recorded Body height Body mass index (BMI) Body weight Heart rate Oxygen saturation Oxygen saturation in Arterial blood by Pulse oximetry Systolic blood pressure Diastolic blood pressure Provider Name and Address Organization Details Last Updated DateTime 4 180.34 cm 24.4 kg/m2 43930.6 6 g 88 /min 98 % 98 % 118 mm[Hg] 70 mm[Hg] Analy Gironmond [facility] 4 14:22:21 Date Recorded Body height Body mass index (BMI) Body weight Heart rate Oxygen saturation Oxygen saturation in Arterial blood by Pulse oximetry Systolic blood pressure Diastolic blood pressure Provider Name and Address Organization Details Last Updated DateTime 5 182.88 cm 22.2 kg/m2 07949.1 5 g 78 /min 100 % 100 % 130 mm[Hg] 82 mm[Hg] Trevon Maradiaga [facility] 5 11:36:15 Social History Question Answer Notes LastModified by Organizat ion Details LastModified Time Tobacco Smoking Status Current Every Day Smoker Not Available [facility] 09/19/2020 03:36:24 What Was The Date Of Your Most Recent Tobacco Screening? 12/21/2024 [email or web address] Information not available 12/21/2024 How Much Tobacco Do You Smoke? 0.5 PPD [id number] Information not available 09/19/2020 Do You Or [...] zoster recombinant 07/17/20 18 completed Not Available [facility] 03/21/2023 20:33:03 zoster recombinant 10/06/20 18 completed Not Available [facility] 03/21/2023 20:33:03 COVID-19, mRNA, LNP-S, PF, 30 mcg/0.3 mL dose 01/28/20 21 completed Not Available [facility] 03/21/2023 20:33:03 COVID-19, mRNA, LNP-S, PF, 30 mcg/0.3 mL dose 02/18/20 21 completed Not Available [facility] 03/21/2023 20:33:03 COVID-19, mRNA, LNP-S, PF, 30 mcg/0.3 mL dose 11/13/20 21 completed Not Available [facility] 03/21/2023 20:33:03 influenza, unspecified formulation 07/28/20 24 completed Rodrigo Rodriguez DO [address] [place], [address], [facility] 12/21/2024 12:00:10 Tdap 07/25/20 20 completed Not Available [facility] 03/21/2023 20:33:03 pneumococcal polysaccharide PPV23 07/25/20 20 completed Not Available [facility] 03/21/2023 20:33:03 Influenza, split virus, quadrivalent, preservative 07/25/20 20 completed Not Available [facility] 03/21/2023 20:33:03 Pneumococcal conjugate PCV 13 07/17/20 18 completed Not Available [facility] 03/21/2023 20:33:03 Tdap 07/17/20 18 completed Not Available [facility] 03/21/2023 20:33:03 Past Encounters Encounter ID Performer Location Encounter Start Date Encounter Closed Date Diagnosis/Indication Diagnosis SNOMED-CT Code Diagnosis ICD10 Code Diagnosis Note [id number] Rodrigo Rodriguez DO [facility] [address] [facility],[place] [address] 06/29/2018 13:32:19 06/29/2018 15:20:14 Hyperlipidemia 94960223 E78.00 Tobacco de pendence syndrome 67577794 F17.200 refuses to quit Chronic ob structive pulmonary disease 64142673 J44.9 relates he does not feel sob Degenerati on of lumbar intervertebral disc 84375281 M51.36 marked progressio n of the lumbar [...] provide oxycodone in the short term Eczema 18103236 L30.9 [id number] [facility] [address] [address] 07/17/2018 13:26:02 07/17/2018 14:21:07 Degeneration of lumbar intervertebral disc 90946973 M51.36 marked progressio n of the lumbar [...] will provide oxycodone in the short term [id number] Marge Chung NP, [address] [address] 09/07/2018 14:11:58 09/07/2018 15:18:54 Cervico-occipital neuralgia 22907774 M54.81 Chronic low back pain 27 9629089 M54.5 [id number] Marge Chung NP, [address] [address] 11/02/2018 14:44:15 11/02/2018 15:55:41 On examination - rash present 918803289 R21 Moisturize after shower and before bed daily, prn benadryl, call if worsens or no relief Neck pain 01153631 M54.2 Chronic low back pain 27 4008554 M54.5 [id number] [facility] [address] [address] 08/23/2019 11:05:42 08/23/2019 12:25:47 Pre-surgery evaluation 163016426 Z01.818 this patient is cleared for the proposed catarct procedure. According to the acc 2017 risk strat. (revised) he is considered an low risk. Pt knows to take his usual medication s on the morning of surgery. [id number] Rodrigo Rodriguez [facility] [address] [facility], [place] [address] 07/03/2020 11:43:51 07/03/2020 12:17:08 Renewal of prescription 912690016 Z76.0 oxycodone Degenerati on of lumbar intervertebral disc 28584348 M51.36 marked progressio n of the lumbar [...] short term Chronic ob structive pulmonary disease 02213315 J44.9 relates he does not feel sob still smoking Lesion of skin of left ear 3691266512 4361960 H93.8X2 [id number] Rodrigo Darren Rodriguez [facility] [address] [facility], [place] [address] 12/13/2020 08:44:58 12/13/2020 15:12:53 Degeneration of lumbar intervertebral disc 32175219 M51.36 marked progressio n of the lumbar [...] workup for intratheca l pain management Hyperlipidemia 92979039 E78.00 he will need to have more blood work Osteoarthr itis of knee 490616328 M17.9 he will need to have this monitored and send to ortho if need Tobacco de pendence syndrome 30579044 F17.200 refuses to quit [id number] Rodrigo Rodriguez [facility] [address] [facility] [address], [place] [address] 10/03/2021 13:45:28 10/03/2021 16:13:10 Degeneration of lumbar intervertebral disc 55094305 M51.36 marked progressio n of the lumbar [...] spinal nerve stimulator given the failure of [facility] i feel very strongly that we need to repaeat an MRI and find out the progressio n of his spinal disease and following that we will have him referred to dr Giovanni VALVERDE Chronic ob structive pulmonary disease 06544867 J44.9 relates he does not feel sob still smoking Hyperlipidemia 28499465 E78.00 he will need to have more blood work [id number] Rodrigo Rodriguez [facility] Medicine [address],[place] [address] 10/23/2021 08:55:14 10/23/2021 13:48:04 Active or passive immunization 411819112 Z23 utd Adult heal th examination 115235540 Z00.00 [id number] Rodrigo Rodriguez [facility] Medicine [address] [facility],[place] [address] 11/05/2022 09:17:08 11/05/2022 10:38:47 Active or passive immunization 537734437 Z23 utd Adult heal th examination 476638713 Z00.01 overall is stable back pain is still the over riding issue with his healthit is interferin g with his adl's Chronic ob structive pulmonary disease 33977494 J44.9 relates he does not feel sob still smoking [id number] Rodrigo Rodriguez [facility] Medicine [address] [facility],[place] [address] 12/10/2022 13:39:33 12/11/2022 08:48:25 Chronic obstructive pulmonary disease 89363474 J44.9 relates he does not feel sob still smoking Degenerati on of lumbar intervertebral disc 53975144 M51.36 [id number] Rodrigo Rodriguez [facility] Medicine [address] [facility],[place] [address] 12/19/2023 14:17:20 12/22/2023 14:21:23 Adult health examination 677825444 Z00.01 overall is stable back pain is still the over riding issue with his health despite surgery but he agrees the severe pain is gone now for most parthe wished to quit tobacco long discussion he will try Zyn Vitamin D deficiency 347 79616 E55.9 Degenerati on of lumbar intervertebral disc 83304365 M51.36 [id number] DO [facility] [address] [facility] [address],[place] [address] 12/21/2024 11:29:40 12/21/2024 12:08:59 Active or passive immunization 447332002 Z23 utd Adult heal th examination 019118493 Z00.00 overall is stable back pain is still the over riding issue with his health despite surgery but he agrees the severe pain is gone now for most parthe wished to quit tobacco long discussion he will try Zyn Screening for cardiovascular system disease 784861740 Z13.6 Screening for malignant neoplasm of colon 083354964 Z12.11 cologuard Depression screening 171 345228 Z13.31 neg Hyperlipidemia 94167922 E78.00 he will need to have more blood work Vitamin D deficiency 347 88085 E55.9 Degenerati on of lumbar intervertebral disc 02234505 M51.[address] Love also is getting eval for hips by [facility] Impaired f asting glycemia 199983044 R73.01 Health Concerns Section Related Observation LastModified by Organization Detai ls LastModified Time None Recorded Concern Status LastModified by Organization Details LastModified Time None Recorded Advance Directives Directive None Recorded Payers Encounter Date Sequence Insurance Name Policy Number Policy Razo Covered Member ID Razo Member ID Guarantor Name 10/23/2021 2 [facility] SUPP1 Gianni A Camp [id number] 1 Gianni Camp 10/23/2021 1 MEDICARE B-[place]: [facility] Gianni A Camp [id number] 3 Gianni Camp 11/05/2022 2 [facility] SUPP1 Gianni A Camp [id number] 1 Gianni Camp 11/05/2022 1 MEDICARE B-[place]: [employer] Gianni A Camp [id number] 3 Gianni Camp 12/10/2022 2 [facility] SUPP1 Gianni A Camp [id number] 1 Gianni Camp 12/10/2022 1 [place]: [facility] Gianni Lees Ward [id number] 3 [facility] 12/[facility]/2023 2 [facility] SUPP1 Gianni Lees Ward [id number] 1 [facility] 12/[facility]2023 1 [place] [facility] Gianni Lees Camp [id number] 3 [facility] 12/21/2024 2 [facility] SUPP1 Gianni Lees Ward [id number] 1 [facility] 12/21/2024 1 [place] [facility] Gianni Lees Ward [id number] 3 [facility] Notes Date Note Type Note Provider Name a tx Address Organization Details Recorded Time 1 text/html [...] MRI this month Rodrigo Rodriguez, DO [address] [place], [address], [facility] 10/23/2021 09:26:45 2 text/html [...] later in daysleep is ok Rodrigo RodriguezDO [address] [place] [address], [address], [facility] 11/05/2022 09:54:07 3 text/html [...] the patient's satisfaction. Rodrigo LeesElaine Rodriguez DO [address] [place] [address], [address], [facility] 12/10/2022 14:15:31 4 text/html here for rechk for annual wellnessand will be getting lab done soon Rodrigo LeesElaine Rodriguez DO [address] [place] [address], [address], [facility] 12/19/2023 14:51:44 5 text/html Annual WellnessReported bypatient.Diet [...] left 3rd finger Rodrigo Rodriguez, DO [address] [facility], [place], [address], [facility] 12/21/2024 12:00:24
== END 2024-12-23 11:49 | disposition home or self-care (01) ==
LOC: HO.HOSX 11:48
PROVIDERS: Visit Provider Physician Assistant
DX: M25.551 Pain in right hip (principal); Z98.1 Arthrodesis status; Z96.642 Presence of left artificial hip joint
CPT/HCPCS: 20610; 73502; 99202; J1010; J2003

== ENCOUNTER 2024-12-27 09:58 | Outpatient (REF) | payer MEDICARE, SELFPAY ==
[2024-12-27 13:14] LABS: MANUAL DIFF FLAG NO
[2024-12-27 13:25] LABS: Basophils Absolute Auto 0.1 X10*3/uL (0.0-0.2); Basophils Percent Auto 1.2 % (0-2); Eosinophils Absolute Auto 0.3 X10*3/uL (0.0-0.4); Eosinophils Percent Auto 4.2 % (0-4); Hematocrit 39.7 % (42.0-52.0); Hemoglobin 12.8 g/dl (14.0-18.0); Imm Gran Abs Auto 0.02 X10*3/uL (0.00-0.03); Imm Gran Pct Auto 0.3 % (0.0-0.4); Lymphocytes Absolute Auto 2.1 X10*3/uL (1.2-4.9); Lymphocytes Percent Auto 28.1 % (20-40); Mean Corpuscular HGB Conc 32.2 g/dl (31.0-36.0); Mean Corpuscular Hemoglobin 30.9 pg (27.0-33.0); Mean Corpuscular Volume 95.9 fL (80.0-98.0); Mean Platelet Volume 12.2 fL (9.4-12.4); Monocytes Absolute Auto 0.6 X10*3/uL (0.1-1.2); Monocytes Percent Auto 8.2 % (2-11); Neutrophils Absolute Auto 4.3 x10*3/uL (2.0-8.3); Platelet Count 319 X10*3/uL (160-400); Red Blood Count 4.14 X10*6/uL (4.60-5.80); Red Cell Distribution Width 14.2 % (11.0-16.0); White Blood Count 7.4 X10*3/uL (4.8-10.8)
[2024-12-27 13:38] LABS: Alanine Aminotransferase 20 U/L (0-40); Albumin Level 3.8 g/dL (3.5-5.0); Alkaline Phosphatase 49 U/L (39-117); Anion Gap 12 (12-20); Aspartate Amino Transferase 31 U/L (5-37); Bilirubin Total 0.2 mg/dL (0.0-1.0); Blood Urea Nitrogen 17 mg/dL (9-16); Calcium 9.4 mg/dL (8.4-10.2); Carbon Dioxide 22 mmol/L (22-29); Chloride 110 mmol/L (96-108); Cholesterol 178 mg/dL (<200); Estimated Glomerular Filt Rate > 60; Glucose Random 89 mg/dL (60-115); HDL Cholesterol 56 mg/dL (>40); LDL Cholesterol Calculated 104 mg/dL (<100); Potassium 4.5 mmol/L (3.3-5.1); Sodium 139 mmol/L (135-145); Total Protein 7.2 g/dL (6.5-8.0); Triglycerides 91 mg/dL (<150)
[2024-12-27 13:40] LABS: Estimated Average Glucose 108 mg/dL; Hemoglobin A1C 117.8779 umol/L; Hemoglobin A1c % 5.4 % (<6.0); Total Hemoglobin (HGBA1C) 3352.6517 umol/L
[2025-01-06 16:23] LABS: VITAMIN D (1,25 OH) D3 29 pg/mL; Vit D (1,25-Dihydroxy) Total 29 pg/mL (18-72); Vitamin D (1,25 OH) D2 <8 pg/mL
== END 2024-12-27 09:59 | disposition home or self-care (01) ==
LOC: HO.MANLDS 09:58
PROVIDERS: Visit Provider Internal Medicine
DX: Z00.00 Encounter for general adult medical examination without abnormal findings (principal); Z13.6 Encounter for screening for cardiovascular disorders; R73.01 Impaired fasting glucose; E55.9 Vitamin D deficiency, unspecified
CPT/HCPCS: 36415; 80053; 80061; 82652; 83036; 85025